=== PATIENT | female | born 1950 | race Two or more races ===

== ENCOUNTER 2018-03-24 12:50 | Outpatient (CLI) | payer BC, MEDICARE ==
[2018-05-16] MEDS ORDERED: AMLO5TAB7 PO (13:07)
[2018-05-19] MEDS ORDERED: CEPH-569 PO (09:02)
== END 2018-03-24 23:59 | disposition home or self-care (01) ==
LOC: WOU 12:50
PROVIDERS: ATTEND Podiatrist Foot & Ankle Surgery
DX: E11.621 Type 2 diabetes mellitus with foot ulcer (principal); L97.422 Non-pressure chronic ulcer of left heel and midfoot with fat layer exposed; L97.412 Non-pressure chronic ulcer of right heel and midfoot with fat layer exposed; M06.9 Rheumatoid arthritis, unspecified; E11.610 Type 2 diabetes mellitus with diabetic neuropathic arthropathy; Z79.82 Long term (current) use of aspirin; Z79.4 Long term (current) use of insulin
CPT/HCPCS: 11043; 87070-TC; 87075-TC; 87186-TC; A6209; A6402; A6407

== ENCOUNTER 2018-03-31 10:58 | Outpatient (CLI) | payer BC, MEDICARE ==
[2018-05-16] MEDS ORDERED: AMLO5TAB7 PO (13:07)
[2018-05-19] MEDS ORDERED: CEPH-569 PO (09:02)
== END 2018-03-31 23:59 | disposition home or self-care (01) ==
LOC: WOU 10:58
PROVIDERS: ATTEND Podiatrist Foot & Ankle Surgery
DX: E11.621 Type 2 diabetes mellitus with foot ulcer (principal); L97.422 Non-pressure chronic ulcer of left heel and midfoot with fat layer exposed; L97.412 Non-pressure chronic ulcer of right heel and midfoot with fat layer exposed; E11.42 Type 2 diabetes mellitus with diabetic polyneuropathy; L03.115 Cellulitis of right lower limb; B95.7 Other staphylococcus as the cause of diseases classified elsewhere; M06.9 Rheumatoid arthritis, unspecified; E11.610 Type 2 diabetes mellitus with diabetic neuropathic arthropathy; Z79.4 Long term (current) use of insulin; Z79.82 Long term (current) use of aspirin; Z79.899 Other long term (current) drug therapy
CPT/HCPCS: 11043; 11042; A6402; A6407

== ENCOUNTER 2018-04-11 10:30 | Outpatient (CLI) | payer BC, MEDICARE ==
[2018-05-16] MEDS ORDERED: AMLO5TAB7 PO (13:07)
[2018-05-19] MEDS ORDERED: CEPH-569 PO (09:02)
== END 2018-04-11 23:59 | disposition home or self-care (01) ==
LOC: WOU 10:30
PROVIDERS: ATTEND Podiatrist Foot & Ankle Surgery
DX: E11.621 Type 2 diabetes mellitus with foot ulcer (principal); L97.428 Non-pressure chronic ulcer of left heel and midfoot with other specified severity; L97.415 Non-pressure chronic ulcer of right heel and midfoot with muscle involvement without evidence of necrosis; L97.522 Non-pressure chronic ulcer of other part of left foot with fat layer exposed; E11.52 Type 2 diabetes mellitus with diabetic peripheral angiopathy with gangrene; M06.9 Rheumatoid arthritis, unspecified; E11.65 Type 2 diabetes mellitus with hyperglycemia; M21.072 Valgus deformity, not elsewhere classified, left ankle; M21.071 Valgus deformity, not elsewhere classified, right ankle; Z79.82 Long term (current) use of aspirin; Z79.4 Long term (current) use of insulin; Z79.899 Other long term (current) drug therapy; E11.610 Type 2 diabetes mellitus with diabetic neuropathic arthropathy; R19.4 Change in bowel habit; E11.69 Type 2 diabetes mellitus with other specified complication; M86.171 Other acute osteomyelitis, right ankle and foot
CPT/HCPCS: 11043; 11042; 87070; A6402; A6407; Z7610; 87186-TC

== ENCOUNTER 2018-04-12 11:50 | Outpatient (CLI) | payer BC, MEDICARE | END 2018-04-12 23:59 | disposition home or self-care (01) | LOC: WOU 11:50 | PROVIDERS: ATTEND Specialist | DX: Z01.818 Encounter for other preprocedural examination (principal); E11.52 Type 2 diabetes mellitus with diabetic peripheral angiopathy with gangrene; I96 Gangrene, not elsewhere classified; M06.9 Rheumatoid arthritis, unspecified; E11.69 Type 2 diabetes mellitus with other specified complication; M86.371 Chronic multifocal osteomyelitis, right ankle and foot; E11.621 Type 2 diabetes mellitus with foot ulcer; L97.428 Non-pressure chronic ulcer of left heel and midfoot with other specified severity; L97.415 Non-pressure chronic ulcer of right heel and midfoot with muscle involvement without evidence of necrosis; L97.522 Non-pressure chronic ulcer of other part of left foot with fat layer exposed; E11.610 Type 2 diabetes mellitus with diabetic neuropathic arthropathy; E11.42 Type 2 diabetes mellitus with diabetic polyneuropathy; L40.59 Other psoriatic arthropathy; Z79.899 Other long term (current) drug therapy; Z79.4 Long term (current) use of insulin; E89.0 Postprocedural hypothyroidism | CPT/HCPCS: 71045-TC; A6402; A6407; G0463 ==

== ENCOUNTER 2018-04-18 10:55 | Outpatient (CLI) | payer BC, MEDICARE | END 2018-04-18 23:59 | disposition home or self-care (01) | LOC: WOU 10:55 | PROVIDERS: ATTEND Podiatrist Foot & Ankle Surgery | DX: E11.621 Type 2 diabetes mellitus with foot ulcer (principal); L97.415 Non-pressure chronic ulcer of right heel and midfoot with muscle involvement without evidence of necrosis; L97.428 Non-pressure chronic ulcer of left heel and midfoot with other specified severity; L97.522 Non-pressure chronic ulcer of other part of left foot with fat layer exposed; E11.52 Type 2 diabetes mellitus with diabetic peripheral angiopathy with gangrene; I96 Gangrene, not elsewhere classified; E11.610 Type 2 diabetes mellitus with diabetic neuropathic arthropathy; M86.671 Other chronic osteomyelitis, right ankle and foot; B95.7 Other staphylococcus as the cause of diseases classified elsewhere; Z79.4 Long term (current) use of insulin; Z79.82 Long term (current) use of aspirin; M06.9 Rheumatoid arthritis, unspecified | CPT/HCPCS: 11042; 11043; A6402 ×2; A6407; Z7610 ==

== ENCOUNTER 2018-04-25 11:11 | Outpatient (CLI) | payer BC, MEDICARE | END 2018-04-25 23:59 | disposition home or self-care (01) | LOC: WOU 11:11 | PROVIDERS: ATTEND Podiatrist Foot & Ankle Surgery | DX: E11.621 Type 2 diabetes mellitus with foot ulcer (principal); L97.415 Non-pressure chronic ulcer of right heel and midfoot with muscle involvement without evidence of necrosis; L97.422 Non-pressure chronic ulcer of left heel and midfoot with fat layer exposed; L97.522 Non-pressure chronic ulcer of other part of left foot with fat layer exposed; L03.115 Cellulitis of right lower limb; B95.7 Other staphylococcus as the cause of diseases classified elsewhere; Z79.4 Long term (current) use of insulin; Z79.82 Long term (current) use of aspirin | CPT/HCPCS: 11042; 11043; A6207; A6402; A6407; Z7610 ==

== ENCOUNTER 2018-05-03 10:54 | Outpatient (CLI) | payer BC, MEDICARE | END 2018-05-03 23:59 | disposition home or self-care (01) | LOC: WOU 10:54 | PROVIDERS: ATTEND Podiatrist Foot & Ankle Surgery | DX: E11.621 Type 2 diabetes mellitus with foot ulcer (principal); L97.422 Non-pressure chronic ulcer of left heel and midfoot with fat layer exposed; L97.415 Non-pressure chronic ulcer of right heel and midfoot with muscle involvement without evidence of necrosis; L97.522 Non-pressure chronic ulcer of other part of left foot with fat layer exposed; M06.9 Rheumatoid arthritis, unspecified; E11.610 Type 2 diabetes mellitus with diabetic neuropathic arthropathy; E11.52 Type 2 diabetes mellitus with diabetic peripheral angiopathy with gangrene; I96 Gangrene, not elsewhere classified; B95.8 Unspecified staphylococcus as the cause of diseases classified elsewhere; E11.69 Type 2 diabetes mellitus with other specified complication; M86.8X7 Other osteomyelitis, ankle and foot; Z79.4 Long term (current) use of insulin; Z79.82 Long term (current) use of aspirin | CPT/HCPCS: 11042; 11043; Z7610 ==

== ENCOUNTER 2018-05-16 11:01 | Outpatient (CLI) | payer BC, MEDICARE ==
[2018-05-16] MEDS ORDERED: LOSA1TAB42 PO (13:07)
[2018-05-16] MEDS ORDERED: LEVO50TA8 PO (13:07)
[2018-05-16] MEDS ORDERED: METH25VI11 SQ (13:07)
[2018-05-16] MEDS ORDERED: CHOL200026 PO (13:07)
[2018-05-16] MEDS ORDERED: ASPI-1169 PO (13:07)
[2018-05-16] MEDS ORDERED: AMLO5TAB2 PO (13:07)
[2018-05-19] MEDS ORDERED: CEPH-569 PO (09:02)
== END 2018-05-16 23:59 | disposition home or self-care (01) ==
LOC: WOU 11:01
PROVIDERS: ATTEND Podiatrist Foot & Ankle Surgery
DX: E11.621 Type 2 diabetes mellitus with foot ulcer (principal); L97.415 Non-pressure chronic ulcer of right heel and midfoot with muscle involvement without evidence of necrosis; L97.422 Non-pressure chronic ulcer of left heel and midfoot with fat layer exposed; L97.522 Non-pressure chronic ulcer of other part of left foot with fat layer exposed; E11.610 Type 2 diabetes mellitus with diabetic neuropathic arthropathy; E11.42 Type 2 diabetes mellitus with diabetic polyneuropathy; E11.69 Type 2 diabetes mellitus with other specified complication; M86.371 Chronic multifocal osteomyelitis, right ankle and foot; M06.9 Rheumatoid arthritis, unspecified; L03.116 Cellulitis of left lower limb; L03.115 Cellulitis of right lower limb; L02.91 Cutaneous abscess, unspecified; B95.7 Other staphylococcus as the cause of diseases classified elsewhere; Z79.82 Long term (current) use of aspirin; Z79.4 Long term (current) use of insulin
CPT/HCPCS: 11043; A6402; A6407; Z7610

== ENCOUNTER 2018-05-16 12:12 | Inpatient (IN) | payer BC, MEDICARE ==
[~2018-05-16] VITALS: Ht 165.1 cm; Wt 68.0 kg
--- NOTE | 2018-05-16 12:18 | NUR ---
PT WHEELED TO ER BED 2. WAS SENT BY DR SOMMERS FOR PRE OPT EVAL. PT PRESENTS W/ BILAT DIABETIC FOOT SORES. DENIES ANY PAIN AT THIS TIME. VSS. AWAITING MD EGAN.
--- NOTE | 2018-05-16 12:20 | NUR ---
DR BERGER AT BEDSIDE FOR EVAL.
--- NOTE | 2018-05-16 12:24 | NUR ---
CALLED DR SOMMERS
--- NOTE | 2018-05-16 12:39 | NUR ---
PHARMACY CALLED FOR IV ANTIBIOTICS
[2018-05-16 12:45] LABS: CALCIUM, SERUM 10.3 mg/dL (8.5-10.1); CARBON DIOXIDE 26 mmol/L (21-32); CHLORIDE 103 mmol/L (98-107); CREATININE 1.8 mg/dL (0.6-1.3); GLUCOSE 344 mg/dL (74-106); POTASSIUM 5.4 mmol/L (3.5-5.1); SODIUM SERUM 134 mmol/L (136-145); UREA NITROGEN, BLOOD 37 mg/dL (7-18)
[2018-05-16 12:51] LABS: BASOPHILS # (AUTO) 0.1 /CMM (0.0-0.2); BASOPHILS % (AUTO) 0.9 % (0.0-2.0); EOSINOPHILS % (AUTO) 2.4 % (0.0-6.0); HEMATOCRIT 34 % (33-45); HEMOGLOBIN 11.3 g/dL (11.5-14.8); LYMPHOCYTES # (AUTO) 2.2 /CMM (0.8-4.8); LYMPHOCYTES % (AUTO) 26.3 % (20.0-44.0); MEAN CORPUSCULAR HEMOGLOBIN 33 PG (26.0-33.0); MEAN CORPUSCULAR HGB CONC 33 g/dl (31.0-36.0); MEAN CORPUSCULAR VOLUME 100 fL (82-100); MONOCYTES # (AUTO) 0.8 /CMM (0.1-1.30); MONOCYTES % (AUTO) 9.9 % (2.0-12.0); NEUTROPHILS # (AUTO) 5.1 /CMM (1.8-8.9); NEUTROPHILS % (AUTO) 60.5 % (43.0-81.0); PLATELET COUNT (AUTO) 225 /CMM (150-450); RDW COEFFICIENT OF VARIATION 15.6 (11.5-15.0); WHITE BLOOD COUNT (AUTO) 8.4 K/uL (4.3-11.0)
[2018-05-16 12:53] LABS: ALANINE AMINOTRANSFERASE 25 U/L (12-78); ALBUMIN 3.7 g/dL (3.4-5.0); ALKALINE PHOSPHATASE 77 U/L (46-116); ASPARTATE AMINOTRANSFERASE 21 U/L (15-37); BILIRUBIN,DIRECT 0.1 mg/dL (0.0-0.2); BILIRUBIN,TOTAL 0.3 mg/dL (0.2-1.0); TOTAL PROTEIN, SERUM 7.3 g/dL (6.4-8.2); TROPONIN I < 0.017 ng/mL (0.00-0.056)
[2018-05-16 13:00] LABS: INR 0.98 (0.85-1.15)
[2018-05-16] MEDS ORDERED: MAG HYDROX/AL HYDROX/SIMETH 30 ML UDC PO PRN (13:00)
[2018-05-16] MEDS ORDERED: INSULIN REGULAR, HUMAN 100 UNIT/ML 3 ML VIAL SQ PRN (13:00)
[2018-05-16] MEDS ORDERED: MAGNESIUM HYDROXIDE 30 ML UDC PO PRN (13:00)
[2018-05-16] MEDS ORDERED: VANCOMYCIN 0.75 GM in IV NS 0.9% 250 ML IV SCH ×2 (13:00→14:00)
[2018-05-16] MEDS ORDERED: Z GUARD REMEDY 2 OZ OINT TP PRN (13:00)
[2018-05-16] MEDS: BLOOD SUGAR DIAGNOSTIC 1 EACH STRIP IN SCH ×3 (13:00→21:39)
[2018-05-16] MEDS ORDERED: ZOLPIDEM TARTRATE 5 MG TABLET PO PRN (13:00)
[2018-05-16] MEDS ORDERED: VANCOMYCIN 1 GM in IV D5W 250 ML IV ONE (13:00)
[2018-05-16] MEDS ORDERED: GENTAMICIN 80 MG in IV D5W 50 ML IV ONE (13:00)
[2018-05-16] MEDS ORDERED: DEXTROSE 50%-WATER 50 ML DISP.SYRIN IV PRN (13:00)
[2018-05-16] MEDS ORDERED: INSULIN GLARGINE, 100 UNIT/ML CARTRIDGE SQ ONE (13:00)
[2018-05-16] MEDS ORDERED: ONDANSETRON HCL/PF 4 MG/2 ML VIAL IVP PRN (13:00)
[2018-05-16] MEDS ORDERED: ACETAMINOPHEN 325 MG TABLET PO PRN (13:00)
[2018-05-16] MEDS ORDERED: ENOXAPARIN SODIUM 40 MG/0.4 ML DISP.SYRIN SQ SCH (13:00)
[2018-05-16] MEDS ORDERED: AMLO5TAB2 PO (13:07)
[2018-05-16] MEDS ORDERED: ASPI-1169 PO (13:07)
[2018-05-16] MEDS ORDERED: LEVO50TA8 PO (13:07)
[2018-05-16] MEDS ORDERED: CHOL200026 PO (13:07)
[2018-05-16] MEDS ORDERED: LOSA1TAB42 PO (13:07)
[2018-05-16] MEDS ORDERED: METH25VI11 SQ (13:07)
--- NOTE | 2018-05-16 13:33 | NUR ---
REPORT GIVEN TO MIKE MCQUEEN
[2018-05-16] MEDS ORDERED: FEE PK DOSING 1 MIN EA MC ONE (13:34)
--- NOTE | 2018-05-16 13:39 | NUR ---
TRANSFERRED TO FLOOR IN STABLE CONDITION
[2018-05-16] MEDS: IV NS 0.9% 1,000 ML IV PRN (16:28)
--- NOTE | 2018-05-16 18:00 | NUR ---
DR. SOMMERS IN AND TOLD PT. UNABLE TO PLACE ON SURG,. SCHEDULE TOMORROW.PT. HAS EXTERNAL INSULIN PUMP AND MANAGES IT.RN TEXTED INFO TO DR. HEREDIA.NO INSULIN GIVEN BY RN. PT. ADMINISTERED INSULIN PER BGL AND DIETARY INTAKE. SPOUSE BROUGHT IN 3 DAY REFILL FOR PUMP.
[2018-05-16] MEDS: PIPERACILLIN /TAZOBACTAM 2.25 G in IV NS 0.9% 50 ML IV SCH (18:04)
--- NOTE | 2018-05-16 19:25 | NUR ---
RN INITIAL NOTES: Received patient on bed, alert, oriented x 4. Breathing even and unlabored. No complaints of pain or discomfort as of this time. IVF hanging on IV pole at bedside but not running. As per AM RN, patient refused it. Asked the patient if she is ready to have it, patient still refused. Call beavers within reach. Bed in low locked position. Patient stable as endorsed by the morning shift RN. Will monitor accordingly.
[2018-05-16 20:00] VITALS: BP 167/77
--- NOTE | 2018-05-16 21:15 | NUR ---
MIKE NOTES: Blood sugar checked, 463. Informed JANETTE Houser. Ordered to use the sliding scale and check BSL in an hour Addendum: 05/16/18 at 2300 by JAY BANDA RN Additional notes: Patient also rechecked blood sugar with her own glucometer, result is the same, 463. Orders obtain from JANETTE Houser
--- NOTE | 2018-05-16 22:36 | NUR ---
RN NOTES: Rechecked blood sugar, 457. Dr. Carranza made aware. She is at bedside talking to the patient as of the moment.
--- NOTE | 2018-05-16 22:54 | NUR ---
RN NOTES: BSL rechecked, 457. To check again at midnight. If still higher than 400, will give insulin as per sliding scale.
[2018-05-16] MEDS ORDERED: ALPRAZOLAM 0.25 MG TABLET PO PRN (23:00)
[2018-05-16] MEDS ORDERED: MORPHINE SULFATE INJ 2 MG/ML DISP.SYRIN IV PRN (23:00)
[2018-05-17] MEDS: PIPERACILLIN /TAZOBACTAM 2.25 G in IV NS 0.9% 50 ML IV SCH ×5 (00:08→23:55)
[2018-05-17] MEDS: BLOOD SUGAR DIAGNOSTIC 1 EACH STRIP IN SCH ×6 (00:20→20:59)
--- NOTE | 2018-05-17 02:10 | NUR ---
MIKE NOTES: JANETTE Zamarripa updated on blood sugar levels and orders given by Dr. Carranza
--- NOTE | 2018-05-17 06:58 | NUR ---
WOUND CARE CONSULT WOUND CARE RECEIVED CONSULT FOR ULCERS ON BOTH FEET. WOUND CARE WILL DEFER CONSULT AND TREATMENT PLANS TO DR TOOTIE GILBERT AT THIS TIME. PATIENT WITH TANYA AT 19. WILL SEE PRN.
[2018-05-17 07:02] LABS: BASOPHILS % (AUTO) 0.5 % (0.0-2.0); EOSINOPHILS % (AUTO) 2.8 % (0.0-6.0); HEMATOCRIT 30 % (33-45); LYMPHOCYTES # (AUTO) 2.4 /CMM (0.8-4.8); LYMPHOCYTES % (AUTO) 29.8 % (20.0-44.0); MEAN CORPUSCULAR HEMOGLOBIN 34 PG (26.0-33.0); MEAN CORPUSCULAR HGB CONC 34 g/dl (31.0-36.0); MEAN CORPUSCULAR VOLUME 100 fL (82-100); MONOCYTES # (AUTO) 0.9 /CMM (0.1-1.30); MONOCYTES % (AUTO) 11.1 % (2.0-12.0); NEUTROPHILS # (AUTO) 4.5 /CMM (1.8-8.9); NEUTROPHILS % (AUTO) 55.8 % (43.0-81.0); PLATELET COUNT (AUTO) 197 /CMM (150-450); RDW COEFFICIENT OF VARIATION 16.3 (11.5-15.0); RED BLOOD CELL COUNT(AUTO) 2.95 MIL/uL (4.0-5.2); WHITE BLOOD COUNT (AUTO) 8.1 K/uL (4.3-11.0)
--- NOTE | 2018-05-17 07:02 | NUR ---
RN CLOSING NOTES: Patient in bed, alert, oriented x 4. Patient remains stable. No complaints of pain or discomfort as of this time. Safety precautions in place. Able to make needs known. All needs attended to. All due medications given as ordered. Will endorse maikel to am shift RN
[2018-05-17 07:22] LABS: CALCIUM, SERUM 8.7 mg/dL (8.5-10.1); CREATININE 1.5 mg/dL (0.6-1.3); MAGNESIUM 1.7 mg/dL (1.8-2.4); PHOSPHORUS 4.8 mg/dL (2.5-4.9); POTASSIUM 4.1 mmol/L (3.5-5.1)
[2018-05-17] MEDS: LEVOTHYROXINE SODIUM 50 MCG TABLET PO SCH (07:55)
[2018-05-17 08:00] VITALS: BP 152/58
[2018-05-17] MEDS ORDERED: LOSARTAN POTASSIUM 50 MG TABLET PO SCH ×2 (09:00→21:00)
[2018-05-17] MEDS ORDERED: DAKINS QUARTER STRENGTH (0.125%) 480 ML BOTTLE TOP SCH (09:00)
[2018-05-17] MEDS ORDERED: AMLODIPINE BESYLATE 5 MG TABLET PO SCH (09:00)
[2018-05-17] MEDS: CHOLECALCIFEROL 1,000 UNIT TABLET (VIT D3) PO SCH (09:00)
[2018-05-17] MEDS: ENOXAPARIN SODIUM 30 MG/0.3 ML DISP.SYRIN SQ SCH (09:00)
[2018-05-17] MEDS: ASPIRIN 81 MG TAB.CHEW PO SCH (09:00)
[2018-05-17] MEDS: DAKINS QUARTER STRENGTH (0.125%) 480 ML BOTTLE TOP SCH (09:22)
--- NOTE | 2018-05-17 10:00 | NUR ---
dr. bernabe in orders given.
[2018-05-17] MEDS: Magnesium 1GM/D5W 100ML PREMIX 100 ML IV SCH ×4 (10:50→18:04)
--- NOTE | 2018-05-17 12:30 | NUR ---
mg. replacement done.
--- NOTE | 2018-05-17 12:30 | NUR ---
iv leaking and uncomfortable,removed and restarted lt. forearm. with #22 angio.
[2018-05-17] MEDS ORDERED: VANCOMYCIN 1 GM in IV NS 0.9% 250 ML IV SCH (13:00)
[2018-05-17] MEDS ORDERED: VANCOMYCIN 1 GM in IV D5W 250 ML IV SCH (14:00)
[2018-05-17] MEDS ORDERED: VANCOMYCIN 0.75 GM in IV NS 0.9% 250 ML IV SCH (14:00)
--- NOTE | 2018-05-17 14:30 | NUR ---
bgl stable a Addendum: 05/17/18 at 2044 by RICHAR LUGO RN above note incomplete.
--- NOTE | 2018-05-17 15:00 | NUR ---
bgl stable all day.
--- NOTE | 2018-05-17 15:45 | NUR ---
ua sent as per dr. horn orders.
[2018-05-17 16:00] VITALS: BP 160/82
--- NOTE | 2018-05-17 18:00 | NUR ---
dr. bowling's asc. here and spoke to pt. regarding surg. and did wd. care to feet.
--- NOTE | 2018-05-17 19:05 | NUR ---
RN INITIAL NOTES: Received patient sitting up on bed, family at bedside. Alert, oriented x 4. No complaints of pain or discomfort as of this time. IV site intact and patent. Call beavers within reach. Bed in low locked position. Patient stable as endorsed by the AM shift RN. Will continue to monitor accordingly
[2018-05-17 19:21] LABS: APPEARANCE,URINE CLEAR (CLEAR); BILIRUBIN,URINE NEGATIVE (NEGATIVE); BLOOD, URINE 2+ Ery/uL (NEGATIVE); COLOR,URINE YELLOW (YELLOW); KETONES,URINE NEGATIVE (NEGATIVE); LEUKOCYTE ESTERASE ,URINE 1+ (NEGATIVE); NITRITE, URINE NEGATIVE (NEGATIVE); PROTEIN,URINE 2+ mg/dl (NEGATIVE); UGLUCOSE NEGATIVE (NEGATIVE); UROBILINOGEN,URINE 0.2 EU/dL (0.2)
[2018-05-17 19:38] LABS: BACTERIA,URINE Moderate /HPF (None Seen); SQUAMOUS EPITHELIAL CELL,UR Few /HPF (None Seen); URINE TOTAL PROTEIN 74.2 mg/dL (0-11.9); WBC,URINE 21-50 /HPF (0-3)
[2018-05-17 20:00] VITALS: BP 155/63
[2018-05-17] MEDS: LOSARTAN POTASSIUM 50 MG TABLET PO SCH (20:56)
[2018-05-17] MEDS: AMLODIPINE BESYLATE 5 MG TABLET PO SCH (20:57)
--- NOTE | 2018-05-17 21:00 | NUR ---
RN NOTES: Blood sugar checked, 212. No insulin given. Patient has own pump that gives her insulin
[2018-05-18] MEDS: BLOOD SUGAR DIAGNOSTIC 1 EACH STRIP IN SCH ×6 (00:30→21:38)
[2018-05-18] MEDS: PIPERACILLIN /TAZOBACTAM 2.25 G in IV NS 0.9% 50 ML IV SCH ×3 (05:27→18:31)
--- NOTE | 2018-05-18 07:25 | NUR ---
RN INITIAL NOTES: PATIENT RESTING IN BED. NONLABORED BREATHING NOTED ON ROOM AIR. DENYING PAIN AT THE MOMENT. IV SITE ON LEFT FOREARM PATENT AND INTACT. BED IN LOWEST LOCKED POSITION. CALL LIGHT WITHIN REACH. WILL CONTINUE TO MONITOR
[2018-05-18] MEDS: LEVOTHYROXINE SODIUM 50 MCG TABLET PO SCH (07:30)
--- NOTE | 2018-05-18 07:30 | NUR ---
RN CLOSING NOTES: Patient in bed, still sleeping but easily arousable. Not in any distress. Breathing even and unlabored. No complaints as of this time. Safety precautions in place. All needs attended to. All due medications given as ordered. For debridement today at 14:00. Endorsed to AM shift RN.
--- NOTE | 2018-05-18 07:47 | NUR ---
PATIENT EDUCATED ON NPO ORDER. PATIENT VERBALIZED UNDERSTANDING PATIENT EDUCATED ON BLOOD SUGAR MONITORING WELL NOT USING INSULIN PUMP DUE TO NPO ORDER. VERBALIZED UNDERSTANDING WELL PATIENT REFUSING IV FLUIDS, STATING "IT MAKES ME URINATE A LOT." BENEFITS AND RISKS EXPLAINED AT LENGTH. PATIENT STILL REFUSED
[2018-05-18 08:00] VITALS: BP 125/79
[2018-05-18 08:19] LABS: CALCIUM, SERUM 8.6 mg/dL (8.5-10.1); CREATININE 1.6 mg/dL (0.6-1.3); POTASSIUM 4.2 mmol/L (3.5-5.1)
[2018-05-18] MEDS: ASPIRIN 81 MG TAB.CHEW PO SCH (09:00)
[2018-05-18] MEDS: CHOLECALCIFEROL 1,000 UNIT TABLET (VIT D3) PO SCH (09:00)
[2018-05-18] MEDS: ENOXAPARIN SODIUM 30 MG/0.3 ML DISP.SYRIN SQ SCH (09:00)
[2018-05-18] MEDS: DAKINS QUARTER STRENGTH (0.125%) 480 ML BOTTLE TOP SCH (10:03)
--- NOTE | 2018-05-18 10:05 | NUR ---
RN NOTES: LOVENOX DOSE HELD PER MD FOR SCHEDULED DEBRIDEMENT SURGERY TODAY
--- NOTE | 2018-05-18 10:06 | NUR ---
RN NOTES: MAGNESIUM LAB ORDERED TO CHECK AFTER MAGNESIUM REPLACEMENT PER MD ORDERS
[2018-05-18] MEDS: IV NS 0.9% 1,000 ML IV PRN (10:08)
[2018-05-18 12:14] VITALS: BP 138/58
--- NOTE | 2018-05-18 12:28 | NUR ---
TYPE AND SCREEN ORDERED PER MD ORDERS, SURGERY PROTOCOL
--- NOTE | 2018-05-18 12:31 | NUR ---
[place] PLACED WITH PRIOR TO SURGERY
[2018-05-18] MEDS ORDERED: LIDOCAINE 1%-EPI 1:100,000 20 ML VIAL ONE (13:34)
[2018-05-18] MEDS ORDERED: BUPIVACAINE MPF 0.75% 30 ML VIAL ONE (13:34)
[2018-05-18] MEDS ORDERED: LIDOCAINE HCL/PF 1% 30 ML SDV ONE (13:34)
[2018-05-18] MEDS ORDERED: MINERAL OIL 10 ML VIAL MC ONE (13:35)
[2018-05-18 15:55] VITALS: BP 148/77
[2018-05-18] MEDS ORDERED: VANCOMYCIN 1 GM in IV NS 0.9% 250 ML IV SCH (16:00)
--- NOTE | 2018-05-18 16:00 | NUR ---
PATIENT RETURNED FROM SURGERY. NONLABORED BREATHING NOTED ON ROOM AIR. DENYING PAIN. IV ON LEFT FOREARM PATENT AND INTACT. DRESSINGS ON BILATERAL FEET INTACT WITH NO BLEEDING NOTED PER DR VAL Penn DPM, KEEP DRESSING CLEAN, DRY, AND INTACT RESUME IV ANTIBIOTICS RESUME PREVIOUS DIET PATIENT TO STAY BED REST FOR NOW PROVIDE BEDSIDE COMMODE ORDER IN CHART
[2018-05-18 16:30] VITALS: BP 144/80
--- NOTE | 2018-05-18 18:57 | NUR ---
RN CLOSING NOTES: PATIENT RESTING IN BED. NONLABORED BREATHING NOTED ON ROOM AIR. DENYING PAIN AT THE MOMENT. IV SITE ON LEFT FOREARM NOTED TO BE INFILTRATED. ICE PACKS APPLIED AND LINE REMOVED. NEW 22 GAUGE IV LINE INSERTED ON RIGHT FOREARM. BED IN LOWEST LOCKED POSITION. CALL LIGHT WITHIN REACH. FALL PRECAUTIONS IMPLEMENTED
--- NOTE | 2018-05-18 19:15 | NUR ---
RN OPENING NOTES RECEIVED PATIENT SITTING UP IN BED, ALERT AND ORIENTED X 4, COMFORTABLE, NO SOB, IN NO ACUTE DISTRESS AT THIS TIME. PT WITH NO C/O PAIN. CONTINUES TO RECEIVE IVF VIA RFA IVP LINE, INFUSING WELL. ALL PATIENT'S NEEDS ATTENDED TO AT THIS TIME. BOTH FEET OFFLOADED. CALL LIGHT PLACED WITHIN EASY REACH. PLACED BED IN LOW POSITION AND LOCKED IN PLACE. WILL CONTINUE TO MONITOR.
[2018-05-18 20:00] VITALS: BP 161/67
[2018-05-18] MEDS: AMLODIPINE BESYLATE 5 MG TABLET PO SCH (20:41)
[2018-05-18] MEDS: LOSARTAN POTASSIUM 50 MG TABLET PO SCH (20:42)
--- NOTE | 2018-05-18 21:30 | NUR ---
RN NOTE BLOOD SUGAR LEVEL CHECK PERFORMED VIA GLUCOMETER AND NOTED PT'S BS: 410 ON RIGHT INDEX AND 424 ON LEFT INDEX FINGER. INFORMED PATIENT AND PER PT, INSULIN WAS ALREADY ADMINISTERED VIA HER OWN INSULIN PUMP. PT VERBALIZED THAT SHE DOESN'T WANT ADDITIONAL INSULIN TO BE ADMINISTERED BY PRIMARY NURSE. CHARGE NURSE AWARE. WILL CONTINUE TO MONITOR PT.
[2018-05-18] MEDS: HYDROCODONE/APAP 5/325MG 1 EACH TABLET PO PRN (21:39)
[2018-05-19] MEDS: PIPERACILLIN /TAZOBACTAM 2.25 G in IV NS 0.9% 50 ML IV SCH ×3 (00:17→12:00)
[2018-05-19] MEDS: BLOOD SUGAR DIAGNOSTIC 1 EACH STRIP IN SCH ×4 (01:20→12:23)
[2018-05-19] MEDS: HYDROCODONE/APAP 5/325MG 1 EACH TABLET PO PRN (04:17)
--- NOTE | 2018-05-19 05:45 | NUR ---
RN NOTES ROCHELLE JOSEPH, BLOOD SUGAR: 381, PT ADMINISTERED 5.6 UNITS INSULIN VIA INSULIN PUMP. PER PT, HER BLOOD SUGAR IS USUALLY LOW, AROUND 70s AT THIS TIME WHEN SHE IS AT HOME.
--- NOTE | 2018-05-19 07:03 | NUR ---
RN CLOSING NOTES PATIENT IN BED, AWAKE, IVF INFUSING ORDERED. ALL PATIENT'S NEEDS ATTENDED TO THROUGHOUT THE SHIFT, DENIES PAIN AT THIS TIME, NO SOB, IN NO ACUTE DISTRESS. PLACED CALL LIGHT WITHIN EASY REACH, BED IN LOW POSITION. DRESSINGS KEPT CLEAN AND IN PLACE. PT SEEN BY JANETTE NEAL, CLERICAL AIDE TEACHER, WITH NO NEW ORDERS. WILL ENDORSE TO AM SHIFT NURSE FOR CONTINUITY OF CARE.
--- NOTE | 2018-05-19 07:40 | NUR ---
RN NOTES PATIENT IN BED, A/OX4, DENIES DISCOMFORT AT THIS TIME, DRESSING ON BLE C/D/I, NEEDS ATTENDED AND MET, CALL LIGHT WITHIN REACH, WILL CONTINUE TO MONITOR.
[2018-05-19] MEDS: ENOXAPARIN SODIUM 30 MG/0.3 ML DISP.SYRIN SQ SCH (08:18)
[2018-05-19] MEDS: LEVOTHYROXINE SODIUM 50 MCG TABLET PO SCH (08:18)
[2018-05-19] MEDS: CHOLECALCIFEROL 1,000 UNIT TABLET (VIT D3) PO SCH (08:18)
[2018-05-19] MEDS: ASPIRIN 81 MG TAB.CHEW PO SCH (08:18)
[2018-05-19] MEDS: DAKINS QUARTER STRENGTH (0.125%) 480 ML BOTTLE TOP SCH (08:22)
--- NOTE | 2018-05-19 08:27 | NUR ---
RN NOTES BS RESULT SHOWS 294, PATIENT CHECKED HER OWN BLOOD SUGAR WITH RESULT OF 296 AND GAVE HERSELF HER OWN INSULIN 5.9U, VIA HER INSULIN PUMP LOCATED ON HER ABDOMEN AREA. PATIENT REFUSED LOVENOX, EXPLAINED RISKS AND BENEFITS STILL REFUSED. OFFERED WOUND TREATMENT HOWEVER PATIENT STATED SHE'S WAITING FOR DR. WAYNE.
[2018-05-19 08:34] VITALS: BP 132/57
[2018-05-19 08:44] LABS: CALCIUM, SERUM 7.8 mg/dL (8.5-10.1); CREATININE 1.7 mg/dL (0.6-1.3); PHOSPHORUS 2.6 mg/dL (2.5-4.9)
[2018-05-19] MEDS ORDERED: CEPH-569 PO (09:02)
--- NOTE | 2018-05-19 11:14 | NUR ---
RN NOTES PATIENT HAS AN ORDER FOR DISCHARGE, SPOKE WITH DR. SOMMERS, PER MD, LEAVE THE DRESSING INTACT, OK FOR DC AND TO FOLLOW UP WITH HIM IN ONE WEEK. SKIN ASSESSMENT COMPLETED BUT UNABLE TO TAKE PHOTOS OF BLE FOR DISCHARGE DUE TO DR. SOMMERS'S ORDER TO LEAVE THE DRESSING ON. PATIENT MADE AWARE AND VERBALIZED UNDERSTANDING.
--- NOTE | 2018-05-19 12:28 | NUR ---
RN NOTES BS SHOWS 238, WILL HOLD INSULIN, BECAUSE PATIENT STATED SHE'S NOT GOING TO EAT, SHE WANTS TO GO HOME RIGHT AWAY, AND SHE GAVE HERSELF HER OWN INSULIN.
--- NOTE | 2018-05-19 12:44 | NUR ---
NURSE RECRUITER NOTE PATIENT A/OX4, BREATHING EVEN AND UNLABORED, AT BEDSIDE, RECEIVED DISCHARGE INSTRUCTIONS AND BOTH VERBALIZED UNDERSTANDING, PIV REMOVED AND COVERED WITH GAUZE AND TAPE, BELONGINGS RECONCILED AND COMPLETE. UNABLE TO TAKE PHOTOS, PER DR. SOMMERS ORDER, LEAVE THE DRESSING INTACT. PER PATIENT HER WOUND CARE IS PRIMARILY DONE BY THE , SO NO HOME HEALTH IS NEEDED. HOSPITAL INTERN AWARE. INSTRUCTED PATIENT NOT TO BEAR WEIGHT ON BLE. AND PATIENT BOTH VERBALIZED UNDERSTANDING. PATIENT LEFT THE FACILITY IN A WHEELCHAIR, ACCOMPANIED BY AND BUTTON SAWYER TO PRIVATE CAR. PATIENT IN NO DISTRESS.
== END 2018-05-19 12:35 | disposition home or self-care (01) | DRG 623 ==
LOC: ER 12:14 → MED 13:21
PROVIDERS: ADMIT Internal Medicine; ATTEND Internal Medicine
PROC: 0HBNXZZ Excision of Left Foot Skin, External Approach (ICD-10-PCS; principal; 2018-05-18 14:00)
PROC: 0HRNX74 Replacement of Left Foot Skin with Autologous Tissue Substitute, Partial Thickness, External Approach (ICD-10-PCS; principal; 2018-05-18 14:00)
PROC: 0JBR0ZZ Excision of Left Foot Subcutaneous Tissue and Fascia, Open Approach (ICD-10-PCS; principal; 2018-05-18 14:00)
PROC: 0JXQ0ZC Transfer Right Foot Subcutaneous Tissue and Fascia with Skin, Subcutaneous Tissue and Fascia, Open Approach (ICD-10-PCS; principal; 2018-05-18 14:00)
DX: E11.621 Type 2 diabetes mellitus with foot ulcer (principal); L02.611 Cutaneous abscess of right foot; L03.115 Cellulitis of right lower limb; E11.52 Type 2 diabetes mellitus with diabetic peripheral angiopathy with gangrene; E11.65 Type 2 diabetes mellitus with hyperglycemia; Z79.82 Long term (current) use of aspirin; E11.22 Type 2 diabetes mellitus with diabetic chronic kidney disease; I12.9 Hypertensive chronic kidney disease with stage 1 through stage 4 chronic kidney disease, or unspecified chronic kidney disease; N17.0 Acute kidney failure with tubular necrosis; L97.519 Non-pressure chronic ulcer of other part of right foot with unspecified severity; N18.9 Chronic kidney disease, unspecified; Z79.4 Long term (current) use of insulin; Z90.710 Acquired absence of both cervix and uterus; L97.529 Non-pressure chronic ulcer of other part of left foot with unspecified severity; E11.42 Type 2 diabetes mellitus with diabetic polyneuropathy; E11.622 Type 2 diabetes mellitus with other skin ulcer; E78.5 Hyperlipidemia, unspecified; M06.9 Rheumatoid arthritis, unspecified; I70.0 Atherosclerosis of aorta; R22.41 Localized swelling, mass and lump, right lower limb
CPT/HCPCS: 36415; 71045-TC; 76770-TC; 80048-TC; 80076-TC; 81000-TC; 82570-TC; 82962-TC; 83605-TC; 83735-TC; 84100-TC; 84155-TC; 84300-TC; 84484-TC; 85025-TC; 85730-TC; 86850-TC; 87040-TC; 87070-TC; 87075-TC; 87081-TC; 87086-TC; 88305-TC; 88312-TC; A4216; A4606; A6253; A6402; A6403; J1580; J1650; J1815; J2543; J3370; J3475; J3490; J7030; J7050; J7060; Z7610

== ENCOUNTER 2018-05-23 10:45 | Outpatient (CLI) | payer BC, MEDICARE ==
[~2018-05-23 10:45] MED LIST: AMLO5TAB2 PO; ASPI-1169 PO; CHOL200026 PO; LEVO50TA8 PO; LOSA1TAB42 PO; METH25VI11 SQ
== END 2018-05-23 23:59 | disposition home or self-care (01) ==
LOC: WOU 10:45
PROVIDERS: ATTEND Podiatrist Foot & Ankle Surgery
DX: Z48.817 Encounter for surgical aftercare following surgery on the skin and subcutaneous tissue (principal); T81.89XD Other complications of procedures, not elsewhere classified, subsequent encounter; E11.42 Type 2 diabetes mellitus with diabetic polyneuropathy; M20.42 Other hammer toe(s) (acquired), left foot; M20.41 Other hammer toe(s) (acquired), right foot; M21.40 Flat foot [pes planus] (acquired), unspecified foot; M06.9 Rheumatoid arthritis, unspecified; Z94.5 Skin transplant status; Z79.4 Long term (current) use of insulin; Z79.82 Long term (current) use of aspirin
CPT/HCPCS: 99214; A6402; Z7610 ×2; G0463

== ENCOUNTER 2018-05-30 10:53 | Outpatient (CLI) | payer BC, MEDICARE | END 2018-05-30 23:59 | disposition home or self-care (01) | LOC: WOU 10:53 | PROVIDERS: ATTEND Podiatrist Foot & Ankle Surgery | DX: E11.621 Type 2 diabetes mellitus with foot ulcer (principal); L97.528 Non-pressure chronic ulcer of other part of left foot with other specified severity; T81.89XD Other complications of procedures, not elsewhere classified, subsequent encounter; L03.115 Cellulitis of right lower limb; B96.89 Other specified bacterial agents as the cause of diseases classified elsewhere; E11.42 Type 2 diabetes mellitus with diabetic polyneuropathy; Z79.4 Long term (current) use of insulin; M06.9 Rheumatoid arthritis, unspecified; Z79.82 Long term (current) use of aspirin | CPT/HCPCS: 11042; 87070; A6402 ×2; Z7610; 87186-TC ==

== ENCOUNTER 2018-06-06 11:05 | Outpatient (CLI) | payer BC, MEDICARE | END 2018-06-06 23:59 | disposition home or self-care (01) | LOC: WOU 11:05 | PROVIDERS: ATTEND Podiatrist Foot & Ankle Surgery | DX: E11.621 Type 2 diabetes mellitus with foot ulcer (principal); L97.528 Non-pressure chronic ulcer of other part of left foot with other specified severity; L97.518 Non-pressure chronic ulcer of other part of right foot with other specified severity; T81.89XD Other complications of procedures, not elsewhere classified, subsequent encounter; T81.31XD Disruption of external operation (surgical) wound, not elsewhere classified, subsequent encounter; E11.42 Type 2 diabetes mellitus with diabetic polyneuropathy; M06.9 Rheumatoid arthritis, unspecified; M20.42 Other hammer toe(s) (acquired), left foot; M20.41 Other hammer toe(s) (acquired), right foot; Z79.4 Long term (current) use of insulin; Z79.82 Long term (current) use of aspirin | CPT/HCPCS: 87070; 87075; 87077; 87186; 99215; A6197; A6402; Z7610; A6209; G0463 ==

== ENCOUNTER 2018-06-12 14:22 | Inpatient (IN) | payer BC, MEDICARE ==
[~2018-06-12] VITALS: Ht 165.1 cm; Wt 73.9 kg
--- NOTE | 2018-06-12 14:30 | NUR ---
WOUND DEHISCENCE TO SUTURES ON R FOOT. NAD NOTED, VSS, RESP EVEN AND UNLABORED, PT WAS PUT ON MONITOR, AND HOSPITAL GOWN. AT BS.
--- NOTE | 2018-06-12 15:37 | NUR ---
PAGED DR. SOMMERS
--- NOTE | 2018-06-12 15:47 | NUR ---
CALLED NURSE TOM FOR MED.SURG BED
--- NOTE | 2018-06-12 16:03 | NUR ---
PAGED EPIC FOR PANEL - ON-CALL PITCH WORKER ADA
[2018-06-12 16:27] LABS: BASOPHILS # (AUTO) 0.1 /CMM (0.0-0.2); BASOPHILS % (AUTO) 0.7 % (0.0-2.0); EOSINOPHILS % (AUTO) 2.7 % (0.0-6.0); HEMATOCRIT 37 % (33-45); HEMOGLOBIN 12.2 g/dL (11.5-14.8); LYMPHOCYTES # (AUTO) 3.2 /CMM (0.8-4.8); LYMPHOCYTES % (AUTO) 29.5 % (20.0-44.0); MEAN CORPUSCULAR HEMOGLOBIN 33 PG (26.0-33.0); MEAN CORPUSCULAR HGB CONC 33 g/dl (31.0-36.0); MEAN CORPUSCULAR VOLUME 98 fL (82-100); MONOCYTES # (AUTO) 0.7 /CMM (0.1-1.30); MONOCYTES % (AUTO) 6.6 % (2.0-12.0); NEUTROPHILS # (AUTO) 6.6 /CMM (1.8-8.9); NEUTROPHILS % (AUTO) 60.5 % (43.0-81.0); PLATELET COUNT (AUTO) 254 /CMM (150-450); RDW COEFFICIENT OF VARIATION 15.3 (11.5-15.0); RED BLOOD CELL COUNT(AUTO) 3.73 MIL/uL (4.0-5.2); WHITE BLOOD COUNT (AUTO) 10.9 K/uL (4.3-11.0)
[2018-06-12 16:36] LABS: CALCIUM, SERUM 9.2 mg/dL (8.5-10.1); CREATININE 1.4 mg/dL (0.6-1.3); POTASSIUM 4.3 mmol/L (3.5-5.1)
[2018-06-12 16:41] LABS: ALBUMIN 3.7 g/dL (3.4-5.0); BILIRUBIN,DIRECT 0.1 mg/dL (0.0-0.2); BILIRUBIN,TOTAL 0.2 mg/dL (0.2-1.0); TOTAL PROTEIN, SERUM 7.2 g/dL (6.4-8.2)
[2018-06-12 16:48] LABS: INR 0.94 (0.85-1.15)
--- NOTE | 2018-06-12 17:00 | NUR ---
CALLED NURSE TOM FOR MED.SURG BED
--- NOTE | 2018-06-12 17:12 | NUR ---
PT TO ROOM 315-2 REPORT TO MIKE JACOBO
[2018-06-12 18:10] VITALS: BP 160/83
--- NOTE | 2018-06-12 18:10 | NUR ---
RECEIVED PATIENT FROM ER VIA RD[facility]. PATIENT IS A/OX4, AMBULATORY. CAME HERE FOR RIGHT WOUND DEHISCENCE AND FOR SURGERY TOMORROW WITH DR WAYNE. NO ACUTE DISTRESS, NO SOB. DENIED PAIN OR DISCOMFORT AT THE MOMENT. IV SITE ON LEFT AC INTACT AND PATENT. PATIENT HAS INSULIN PUMP ON RIGHT ABDOMEN. PLACED A KERLIX DRESSING ON RIGHT PLANTAR FOOT. KEPT PATIENT SAFE AND COMFORTABLE. BED IN LOW/LOCKED POSITION, CALL LIGHT IN REACH. NOTIFIED MD FOR ADMITTING ORDERS. WILL ENDORSED TO ROTOFORMER BACKTENDER FOR BEBE.
[2018-06-12] MEDS ORDERED: IV NS 0.9% 1,000 ML IV PRN (19:19)
--- NOTE | 2018-06-12 19:22 | NUR ---
ENDORSED PATIENT IN STABLE CONDITION TO MIKE OSORIO FOR BEBE.
[2018-06-12] MEDS ORDERED: MAGNESIUM HYDROXIDE 30 ML UDC PO PRN (19:30)
[2018-06-12] MEDS ORDERED: ACETAMINOPHEN 325 MG TABLET PO PRN (19:30)
[2018-06-12] MEDS ORDERED: Z GUARD REMEDY 2 OZ OINT TP PRN (19:30)
[2018-06-12] MEDS ORDERED: MAG HYDROX/AL HYDROX/SIMETH 30 ML UDC PO PRN (19:30)
[2018-06-12] MEDS ORDERED: HYDROCODONE/APAP 5/325MG 1 EACH TABLET PO PRN (19:30)
[2018-06-12] MEDS ORDERED: MORPHINE SULFATE INJ 2 MG/ML DISP.SYRIN IV PRN (19:30)
[2018-06-12] MEDS ORDERED: ONDANSETRON HCL/PF 4 MG/2 ML VIAL IVP PRN (19:30)
[2018-06-12] MEDS ORDERED: ZOLPIDEM TARTRATE 5 MG TABLET PO PRN (19:30)
--- NOTE | 2018-06-12 19:30 | NUR ---
MS RN OPENING NOTE Patient was seen sitting upright in bed AAOx4, breathing on RA with no signs of acute distress. IV in the left AC is intact and patent. Dressing on right foot is clean, dry, and intact. Patient is scheduled for surgery tomorrow morning for right foot debridement and wound closure with possible application of skin autograph or allograph. Received phone call from Dr. Jung confirming surgery; verbal orders received and entered electronically for NPO status and non-weight bearing on right foot. Patient has been made aware; consents pending. Bed is low/locked, two side rails up, and call beavers within reach. Patient has no immediate needs at this time. Will continue to monitor.
[2018-06-12 20:00] VITALS: BP 155/63
[2018-06-12] MEDS ORDERED: FEE PK DOSING 1 MIN EA MC ONE (20:24)
[2018-06-12] MEDS ORDERED: VANCOMYCIN 1 GM in IV D5W 250 ML IV SCH (21:00)
--- NOTE | 2018-06-12 22:00 | NUR ---
MS RN NOTE - Possible allergy to Vanco Patient reported itching on her back, neck, and head shortly after IV Vanco was given, however, roughly 3/4 of the bag had infused before patient alerted me. Upon observation, patient had redness along neck, upper back, and shoulders. IV Vanco was stopped and disconnected. Patient did not have difficulty breathing and denied any other symptoms. Patient was monitored. About 15 minutes later, patient stated that the itching went away. On-call physician, Dr. Mundo Gallegos, was informed. 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 Order for 25 mg IV benadryl prn with Vanco received.
[2018-06-12] MEDS: PIPERACILLIN /TAZOBACTAM 3.375 G in IV D5W 50 ML IV SCH (22:45)
[2018-06-13] MEDS ORDERED: diphenhydrAMINE HCL 50 MG/ML VIAL IV PRN
[2018-06-13] MEDS: PIPERACILLIN /TAZOBACTAM 3.375 G in IV D5W 50 ML IV SCH ×2 (04:03→09:51)
--- NOTE | 2018-06-13 04:45 | NUR ---
MS RN NOTE - New IV Patient's IV pump continued to alarm "downstream occlusion" despite flushing IV and repositioning arm and IV tubing multiple times throughout the night. Patient also reported mild pain upon the last IV flush. New IV (20g) was started in the right forearm with positive blood return and easy flush. IV fluids NS at 125 ml/hr were resumed and IV in the left AC was removed.
--- NOTE | 2018-06-13 07:00 | NUR ---
MS RN CLOSING NOTE / Patient left for surgery Patient left the unit for right foot surgery - wound debridement and closure with possible application of skin graft. All consents signed and surgical checklist completed. Vitals signs WNL. Patient remained NPO after midnight. Patient slept intermittently overnight, but had no complications and remains in stable condition. Patient care has been endorsed to day shift nurse.
[2018-06-13] MEDS ORDERED: ANESTHESIA TRAY IN PYXIS 1 EA TRAY MC ONE (07:09)
[2018-06-13] MEDS ORDERED: MINERAL OIL 10 ML VIAL MC ONE (07:09)
[2018-06-13 07:18] LABS: BASOPHILS # (AUTO) 0.1 /CMM (0.0-0.2); BASOPHILS % (AUTO) 0.6 % (0.0-2.0); EOSINOPHILS % (AUTO) 3.3 % (0.0-6.0); HEMATOCRIT 32 % (33-45); HEMOGLOBIN 10.4 g/dL (11.5-14.8); LYMPHOCYTES # (AUTO) 3.2 /CMM (0.8-4.8); LYMPHOCYTES % (AUTO) 33.2 % (20.0-44.0); MEAN CORPUSCULAR HEMOGLOBIN 33 PG (26.0-33.0); MEAN CORPUSCULAR HGB CONC 33 g/dl (31.0-36.0); MEAN CORPUSCULAR VOLUME 101 fL (82-100); MONOCYTES % (AUTO) 10.3 % (2.0-12.0); NEUTROPHILS # (AUTO) 5.1 /CMM (1.8-8.9); NEUTROPHILS % (AUTO) 52.6 % (43.0-81.0); PLATELET COUNT (AUTO) 207 /CMM (150-450); RDW COEFFICIENT OF VARIATION 15.9 (11.5-15.0); RED BLOOD CELL COUNT(AUTO) 3.12 MIL/uL (4.0-5.2); WHITE BLOOD COUNT (AUTO) 9.7 K/uL (4.3-11.0)
[2018-06-13] MEDS ORDERED: LIDOCAINE 0.5% HCL 50 ML VIAL ONE (07:19)
[2018-06-13] MEDS ORDERED: LIDOCAINE 0.5%-EPI 1:200,000 50 ML VIAL ONE (07:19)
[2018-06-13] MEDS: PANTOPRAZOLE 40 MG TABLET.DR PO SCH (07:30)
--- NOTE | 2018-06-13 07:35 | NUR ---
MS RN OPENING NOTES PATIENT IS IN OPERATION ROOM FOR WOUND DEBRIDEMENT AND CLOSURE WITH POSSIBLE SKIN GRAFT BY DR. SOMMERS. PATIENT LEFT THE UNIT AT 0700.
[2018-06-13 07:44] LABS: CALCIUM, SERUM 8.3 mg/dL (8.5-10.1); CREATININE 1.3 mg/dL (0.6-1.3); PHOSPHORUS 3.4 mg/dL (2.5-4.9); POTASSIUM 4.1 mmol/L (3.5-5.1)
--- NOTE | 2018-06-13 08:00 | NUR ---
NON ADMINISTERED PROTONIX. PATIENT IS NPO FOR SURGERY AND IN THE OPERATION ROOM.
--- NOTE | 2018-06-13 08:50 | NUR ---
PATIENT RETURNED FROM OPERATION ROOM FROM WOUND DEBRIDEMENT WITH LEFT THIGH SKIN GRAFT AND WOUND CLOSURE.
[2018-06-13 09:40] VITALS: BP 149/61
[2018-06-13] MEDS ORDERED: IV NS 0.9% 1,000 ML IV PRN (09:45)
[2018-06-13 16:00] VITALS: BP 165/67
--- NOTE | 2018-06-13 17:11 | NUR ---
Patient is alert and pleasant. Lives at home with spouse who is her primary source of support and caregiver. Patient is independent with adl's, he owns a wheelchair for mobility due to B/L LE diabetic foot ulcers s/p debridement and skin grafting with wound dehiscence. She is being followed at the [facility] wound care center. Patient does wound care at home. Current plan is to return home, will provide ride when discharge. Addendum: 06/13/18 at 1712 by KENNY IVERSON RN Amended: Links added.
[2018-06-13] MEDS: PIPERACILLIN /TAZOBACTAM 3.375 G in IV NS 0.9% 50 ML IV SCH (17:18)
--- NOTE | 2018-06-13 18:15 | NUR ---
MS RN CLOSING NOTES PATIENT IS IN STABLE CONDITION. IN NO APPARENT DISTRESS. BEDSIDE RAILS ARE UPX2. BED IS LOCKED AND LOWERED. CALL LIGHT IS WITHIN REACH. IV LINE IS INTACT AND PATENT. ALL NEEDS WERE MET. WILL ENDORSE CARE TO MARINE ENGINEER CPVEC NURSE FOR BEBE.
--- NOTE | 2018-06-13 19:30 | NUR ---
RN NOTES RECEIVED PT AWAKE, ALERT AND ORIENTED X4, ON ROOM AIR AND TOLERATED WELL. PT DENIES PAIN AND DISCOMFORT AT THIS TIME. IV ACCESS ON RIGHT FORE ARM PATENT AND INTACT WITH ONGOING IVF INFUSING WELL. LEFT UPPER THIGH DRESSING CLEAN, DRY AND INTACT. BILATERAL FEET ELEVATED WITH DRESSING CLEAN, DRY, AND INTACT. PLAN OF CARE DISCUSSED WITH THE PT AND VERBALIZED UNDERSTANDING. SAFETY MEASURES AND FALL PRECAUTION OBSERVED WITH CALL LIGHT WITH IN REACH. WILL CONTINUE TO MONITOR PT.
[2018-06-13 20:00] VITALS: BP 150/70
[2018-06-13 22:00] VITALS: BP 150/70
[2018-06-14] MEDS: PIPERACILLIN /TAZOBACTAM 3.375 G in IV NS 0.9% 50 ML IV SCH ×3 (00:02→11:37)
[2018-06-14 06:22] LABS: BASOPHILS % (AUTO) 0.2 % (0.0-2.0); EOSINOPHILS % (AUTO) 0.3 % (0.0-6.0); HEMATOCRIT 30 % (33-45); HEMOGLOBIN 9.8 g/dL (11.5-14.8); LYMPHOCYTES # (AUTO) 2.5 /CMM (0.8-4.8); LYMPHOCYTES % (AUTO) 19.3 % (20.0-44.0); MEAN CORPUSCULAR HEMOGLOBIN 33 PG (26.0-33.0); MEAN CORPUSCULAR HGB CONC 32 g/dl (31.0-36.0); MEAN CORPUSCULAR VOLUME 102 fL (82-100); MONOCYTES # (AUTO) 1.1 /CMM (0.1-1.30); MONOCYTES % (AUTO) 8.2 % (2.0-12.0); NEUTROPHILS # (AUTO) 9.4 /CMM (1.8-8.9); PLATELET COUNT (AUTO) 200 /CMM (150-450); RDW COEFFICIENT OF VARIATION 15.4 (11.5-15.0); RED BLOOD CELL COUNT(AUTO) 2.99 MIL/uL (4.0-5.2)
--- NOTE | 2018-06-14 06:30 | NUR ---
RN NOTES PT STABLE OVERNIGHT, AFEBRILE, NO COMPLAIN OF PAIN WITHIN THE SHIFT. KEPT BILATERAL LOWER LEG ELEVATED. NO SIGNIFICANT CHANGE IN CONDITION NOTED. WILL ENDORSE TO MORNING RN FOR CONTINUITY OF CARE.
[2018-06-14 06:45] LABS: CREATININE 1.5 mg/dL (0.6-1.3); PHOSPHORUS 3.2 mg/dL (2.5-4.9); POTASSIUM 4.3 mmol/L (3.5-5.1)
--- NOTE | 2018-06-14 07:10 | NUR ---
RN NOTES GLUCOSE LEVEL 421MG/DL PER LABORATORY, PT INFORMED BECAUSE SHE'S CHECKING HER BLOOD SUGAR LEVEL EVERY BEFORE MEALS AND SELF ADMINISTER INSULIN VIA INSULIN PUMP. PER PT SHE WILL CHECK HER BLOOD SUGAR BEFORE BREAKFAST AND WILL GIVE HERSELF INSULIN VIA INSULIN PUMP. WILL ENDORSE TO MORNING RN.
[2018-06-14 08:00] VITALS: BP 136/60
[2018-06-14] MEDS ORDERED: LEVOTHYROXINE SODIUM 50 MCG TABLET PO SCH (08:00)
[2018-06-14] MEDS: PANTOPRAZOLE 40 MG TABLET.DR PO SCH (08:43)
[2018-06-14 08:45] VITALS: BP 136/60
[2018-06-14] MEDS ORDERED: ASPIRIN 81 MG TAB.CHEW PO SCH (09:00)
[2018-06-14] MEDS ORDERED: AMLODIPINE BESYLATE 5 MG TABLET PO SCH (09:00)
[2018-06-14] MEDS ORDERED: DOXY150T PO (11:24)
[2018-06-14] MEDS ORDERED: CLINDAMYCIN 300 MG in IV NS 0.9% 50 ML IV SCH (12:00)
== END 2018-06-14 13:00 | disposition home or self-care (01) | DRG 901 ==
LOC: ER 14:24 → MED 17:20
PROVIDERS: ADMIT Student in an Organized Health Care Education/Training Program; ATTEND Student in an Organized Health Care Education/Training Program
PROC: 0HRMX73 Replacement of Right Foot Skin with Autologous Tissue Substitute, Full Thickness, External Approach (ICD-10-PCS; principal; 2018-06-13 07:40)
PROC: 0JBQ0ZZ Excision of Right Foot Subcutaneous Tissue and Fascia, Open Approach (ICD-10-PCS; principal; 2018-06-13 07:40)
DX: T81.32XA Disruption of internal operation (surgical) wound, not elsewhere classified, initial encounter (principal); N17.0 Acute kidney failure with tubular necrosis; D68.59 Other primary thrombophilia; Y83.2 Surgical operation with anastomosis, bypass or graft as the cause of abnormal reaction of the patient, or of later complication, without mention of misadventure at the time of the procedure; Y92.89 Other specified places as the place of occurrence of the external cause; E11.22 Type 2 diabetes mellitus with diabetic chronic kidney disease; E11.621 Type 2 diabetes mellitus with foot ulcer; I12.9 Hypertensive chronic kidney disease with stage 1 through stage 4 chronic kidney disease, or unspecified chronic kidney disease; N18.9 Chronic kidney disease, unspecified; L40.50 Arthropathic psoriasis, unspecified; Z79.82 Long term (current) use of aspirin; Z96.41 Presence of insulin pump (external) (internal); Z79.4 Long term (current) use of insulin; Z90.710 Acquired absence of both cervix and uterus; Z82.49 Family history of ischemic heart disease and other diseases of the circulatory system; Z74.09 Other reduced mobility; E11.42 Type 2 diabetes mellitus with diabetic polyneuropathy; T36.8X5A Adverse effect of other systemic antibiotics, initial encounter; L97.509 Non-pressure chronic ulcer of other part of unspecified foot with unspecified severity; E78.5 Hyperlipidemia, unspecified
CPT/HCPCS: 36415; 71045-TC; 80048-TC; 80061-TC; 80076-TC; 82962-TC; 83735-TC; 84100-TC; 85025-TC; 85730-TC; 87070-TC; 87081-TC; A4216; A4606; A6402; J2543; J3370; J3490; J7030; J7060; Z7610

== ENCOUNTER 2018-06-20 11:17 | Outpatient (CLI) | payer BC, MEDICARE ==
[~2018-06-20 11:17] MED LIST changes: +DOXY150T PO
== END 2018-06-20 23:59 | disposition home or self-care (01) ==
LOC: WOU 11:17
PROVIDERS: ATTEND Podiatrist Foot & Ankle Surgery
DX: Z48.817 Encounter for surgical aftercare following surgery on the skin and subcutaneous tissue (principal); T81.89XD Other complications of procedures, not elsewhere classified, subsequent encounter; E11.42 Type 2 diabetes mellitus with diabetic polyneuropathy; Z79.4 Long term (current) use of insulin; Z79.82 Long term (current) use of aspirin; M06.9 Rheumatoid arthritis, unspecified; M20.42 Other hammer toe(s) (acquired), left foot; M20.41 Other hammer toe(s) (acquired), right foot
CPT/HCPCS: 99213; A6402; Z7610; G0463

== ENCOUNTER 2018-06-27 11:15 | Outpatient (CLI) | payer BC, MEDICARE | END 2018-06-27 23:59 | disposition home or self-care (01) | LOC: WOU 11:15 | PROVIDERS: ATTEND Podiatrist Foot & Ankle Surgery | DX: Z48.817 Encounter for surgical aftercare following surgery on the skin and subcutaneous tissue (principal); L84 Corns and callosities; M06.9 Rheumatoid arthritis, unspecified; M20.42 Other hammer toe(s) (acquired), left foot; M20.41 Other hammer toe(s) (acquired), right foot; T81.31XD Disruption of external operation (surgical) wound, not elsewhere classified, subsequent encounter; E11.42 Type 2 diabetes mellitus with diabetic polyneuropathy; E11.610 Type 2 diabetes mellitus with diabetic neuropathic arthropathy; Z79.82 Long term (current) use of aspirin; Z79.4 Long term (current) use of insulin | CPT/HCPCS: 99215; A6402; Z7610; G0463 ==

== ENCOUNTER 2018-07-04 11:15 | Outpatient (CLI) | payer BC, MEDICARE ==
[~2018-07-04 11:15] MED LIST changes: -AMLO5TAB2 PO; +AMLO5TAB7 PO
== END 2018-07-04 23:59 | disposition home or self-care (01) ==
LOC: WOU 11:15
PROVIDERS: ATTEND Podiatrist Foot & Ankle Surgery
DX: Z48.817 Encounter for surgical aftercare following surgery on the skin and subcutaneous tissue (principal); E11.610 Type 2 diabetes mellitus with diabetic neuropathic arthropathy; E11.42 Type 2 diabetes mellitus with diabetic polyneuropathy; L40.59 Other psoriatic arthropathy; Z86.31 Personal history of diabetic foot ulcer; Z79.4 Long term (current) use of insulin; Z79.82 Long term (current) use of aspirin; Z79.899 Other long term (current) drug therapy; M06.9 Rheumatoid arthritis, unspecified
CPT/HCPCS: 99213; A6402 ×2; Z7610; G0463

== ENCOUNTER 2018-07-11 11:20 | Outpatient (CLI) | payer BC, MEDICARE | END 2018-07-11 23:59 | disposition home or self-care (01) | LOC: WOU 11:20 | PROVIDERS: ATTEND Podiatrist Foot & Ankle Surgery | DX: Z48.817 Encounter for surgical aftercare following surgery on the skin and subcutaneous tissue (principal); E11.610 Type 2 diabetes mellitus with diabetic neuropathic arthropathy; M06.9 Rheumatoid arthritis, unspecified; Z86.31 Personal history of diabetic foot ulcer; Z79.4 Long term (current) use of insulin; Z79.82 Long term (current) use of aspirin; L84 Corns and callosities; M25.375 Other instability, left foot; M25.374 Other instability, right foot | CPT/HCPCS: 99213; A6402; Z7610; G0463 ==

== ENCOUNTER 2018-07-18 11:19 | Outpatient (CLI) | payer BC, MEDICARE | END 2018-07-18 23:59 | disposition home or self-care (01) | LOC: WOU 11:19 | PROVIDERS: ATTEND Podiatrist Foot & Ankle Surgery | DX: L84 Corns and callosities (principal); M79.671 Pain in right foot; M21.962 Unspecified acquired deformity of left lower leg; M21.961 Unspecified acquired deformity of right lower leg | CPT/HCPCS: 99213; A6402; Z7610; G0463 ==

== ENCOUNTER 2018-07-25 11:12 | Outpatient (CLI) | payer BC, MEDICARE | END 2018-07-25 23:59 | disposition home or self-care (01) | LOC: WOU 11:12 | PROVIDERS: ATTEND Podiatrist Foot & Ankle Surgery | DX: S90.32XA Contusion of left foot, initial encounter (principal); X58.XXXA Exposure to other specified factors, initial encounter; E11.610 Type 2 diabetes mellitus with diabetic neuropathic arthropathy; Z79.4 Long term (current) use of insulin; Y93.89 Activity, other specified; Y92.89 Other specified places as the place of occurrence of the external cause; Z79.82 Long term (current) use of aspirin; L84 Corns and callosities; M20.12 Hallux valgus (acquired), left foot; M20.11 Hallux valgus (acquired), right foot | CPT/HCPCS: 10140; 87070; 87077; 87186; A6402; Z7610 ==

== ENCOUNTER 2018-08-01 11:12 | Outpatient (CLI) | payer BC, MEDICARE | END 2018-08-01 23:59 | disposition home or self-care (01) | LOC: WOU 11:12 | PROVIDERS: ATTEND Podiatrist Foot & Ankle Surgery | DX: E11.621 Type 2 diabetes mellitus with foot ulcer (principal); L97.422 Non-pressure chronic ulcer of left heel and midfoot with fat layer exposed; L97.412 Non-pressure chronic ulcer of right heel and midfoot with fat layer exposed; E11.610 Type 2 diabetes mellitus with diabetic neuropathic arthropathy; E11.42 Type 2 diabetes mellitus with diabetic polyneuropathy; L03.116 Cellulitis of left lower limb; Z79.4 Long term (current) use of insulin; Z79.82 Long term (current) use of aspirin | CPT/HCPCS: 11042; A6402; Z7610 ==

== ENCOUNTER 2018-09-26 11:15 | Outpatient (CLI) | payer BC, MEDICARE | END 2018-09-26 23:59 | disposition home or self-care (01) | LOC: WOU 11:15 | PROVIDERS: ATTEND Podiatrist Foot & Ankle Surgery | DX: E11.621 Type 2 diabetes mellitus with foot ulcer (principal); L97.422 Non-pressure chronic ulcer of left heel and midfoot with fat layer exposed; L97.412 Non-pressure chronic ulcer of right heel and midfoot with fat layer exposed; E11.42 Type 2 diabetes mellitus with diabetic polyneuropathy; Z79.4 Long term (current) use of insulin; M06.9 Rheumatoid arthritis, unspecified; M21.079 Valgus deformity, not elsewhere classified, unspecified ankle; M19.072 Primary osteoarthritis, left ankle and foot; M19.071 Primary osteoarthritis, right ankle and foot | CPT/HCPCS: 11042; A6402; Z7610 ==

== ENCOUNTER 2018-10-03 11:15 | Outpatient (CLI) | payer BC, MEDICARE | END 2018-10-03 23:59 | disposition home or self-care (01) | LOC: WOU 11:15 | PROVIDERS: ATTEND Podiatrist Foot & Ankle Surgery | DX: E11.621 Type 2 diabetes mellitus with foot ulcer (principal); L97.422 Non-pressure chronic ulcer of left heel and midfoot with fat layer exposed; L97.412 Non-pressure chronic ulcer of right heel and midfoot with fat layer exposed; E11.610 Type 2 diabetes mellitus with diabetic neuropathic arthropathy; Z79.4 Long term (current) use of insulin; M06.9 Rheumatoid arthritis, unspecified; M21.079 Valgus deformity, not elsewhere classified, unspecified ankle; L90.9 Atrophic disorder of skin, unspecified; Z79.82 Long term (current) use of aspirin | CPT/HCPCS: 11042; A6402; Z7610 ==

== ENCOUNTER 2018-10-13 11:15 | Outpatient (CLI) | payer BC, MEDICARE ==
[~2018-10-13 11:15] MED LIST changes: -AMLO5TAB7 PO; +AMLO5TAB9 PO
== END 2018-10-13 23:59 | disposition home or self-care (01) ==
LOC: WOU 11:15
PROVIDERS: ATTEND Podiatrist Foot & Ankle Surgery
DX: E11.621 Type 2 diabetes mellitus with foot ulcer (principal); L97.422 Non-pressure chronic ulcer of left heel and midfoot with fat layer exposed; L97.412 Non-pressure chronic ulcer of right heel and midfoot with fat layer exposed; E11.610 Type 2 diabetes mellitus with diabetic neuropathic arthropathy; L40.59 Other psoriatic arthropathy; E11.42 Type 2 diabetes mellitus with diabetic polyneuropathy; L90.9 Atrophic disorder of skin, unspecified; M21.079 Valgus deformity, not elsewhere classified, unspecified ankle; M06.9 Rheumatoid arthritis, unspecified; Z79.4 Long term (current) use of insulin; Z79.82 Long term (current) use of aspirin; Z79.899 Other long term (current) drug therapy
CPT/HCPCS: 11042; A6402

== ENCOUNTER 2018-10-31 11:15 | Outpatient (CLI) | payer BC, MEDICARE | END 2018-10-31 23:59 | disposition home or self-care (01) | LOC: WOU 11:15 | PROVIDERS: ATTEND Podiatrist Foot & Ankle Surgery | DX: E11.621 Type 2 diabetes mellitus with foot ulcer (principal); L97.422 Non-pressure chronic ulcer of left heel and midfoot with fat layer exposed; L97.412 Non-pressure chronic ulcer of right heel and midfoot with fat layer exposed; E11.610 Type 2 diabetes mellitus with diabetic neuropathic arthropathy; Z79.82 Long term (current) use of aspirin; Z79.4 Long term (current) use of insulin | CPT/HCPCS: 11042; A6402 ==

== ENCOUNTER 2018-11-07 11:15 | Outpatient (CLI) | payer BC, MEDICARE | END 2018-11-07 23:59 | disposition home or self-care (01) | LOC: WOU 11:15 | PROVIDERS: ATTEND Podiatrist Foot & Ankle Surgery | DX: E11.621 Type 2 diabetes mellitus with foot ulcer (principal); L97.422 Non-pressure chronic ulcer of left heel and midfoot with fat layer exposed; L97.412 Non-pressure chronic ulcer of right heel and midfoot with fat layer exposed; E11.610 Type 2 diabetes mellitus with diabetic neuropathic arthropathy; E11.42 Type 2 diabetes mellitus with diabetic polyneuropathy; Z79.4 Long term (current) use of insulin; M21.072 Valgus deformity, not elsewhere classified, left ankle; M21.071 Valgus deformity, not elsewhere classified, right ankle | CPT/HCPCS: 11042 ==

== ENCOUNTER 2018-11-14 11:15 | Outpatient (CLI) | payer BC, MEDICARE | END 2018-11-14 23:59 | disposition home or self-care (01) | LOC: WOU 11:15 | PROVIDERS: ATTEND Podiatrist Foot & Ankle Surgery | DX: E11.621 Type 2 diabetes mellitus with foot ulcer (principal); L97.522 Non-pressure chronic ulcer of other part of left foot with fat layer exposed; L97.512 Non-pressure chronic ulcer of other part of right foot with fat layer exposed; E11.610 Type 2 diabetes mellitus with diabetic neuropathic arthropathy; E11.42 Type 2 diabetes mellitus with diabetic polyneuropathy; Z79.4 Long term (current) use of insulin; Z79.82 Long term (current) use of aspirin; M21.00 Valgus deformity, not elsewhere classified, unspecified site; R60.9 Edema, unspecified | CPT/HCPCS: 11042; 71046; A6402; Z7610 ==

== ENCOUNTER 2018-11-21 11:15 | Outpatient (CLI) | payer BC, MEDICARE | END 2018-11-21 23:59 | disposition home or self-care (01) | LOC: WOU 11:15 | PROVIDERS: ATTEND Podiatrist Foot & Ankle Surgery | DX: E11.621 Type 2 diabetes mellitus with foot ulcer (principal); L97.522 Non-pressure chronic ulcer of other part of left foot with fat layer exposed; L97.512 Non-pressure chronic ulcer of other part of right foot with fat layer exposed; M06.9 Rheumatoid arthritis, unspecified; E11.610 Type 2 diabetes mellitus with diabetic neuropathic arthropathy; Z79.4 Long term (current) use of insulin; Z79.82 Long term (current) use of aspirin; M21.00 Valgus deformity, not elsewhere classified, unspecified site; M20.12 Hallux valgus (acquired), left foot; M20.11 Hallux valgus (acquired), right foot; M20.40 Other hammer toe(s) (acquired), unspecified foot | CPT/HCPCS: 11042 ==

== ENCOUNTER 2018-11-28 11:10 | Outpatient (CLI) | payer BC, MEDICARE | END 2018-11-28 23:59 | disposition home or self-care (01) | LOC: WOU 11:10 | PROVIDERS: ATTEND Podiatrist Foot & Ankle Surgery | DX: E11.621 Type 2 diabetes mellitus with foot ulcer (principal); L97.522 Non-pressure chronic ulcer of other part of left foot with fat layer exposed; L97.512 Non-pressure chronic ulcer of other part of right foot with fat layer exposed; E11.610 Type 2 diabetes mellitus with diabetic neuropathic arthropathy; M21.079 Valgus deformity, not elsewhere classified, unspecified ankle; M06.9 Rheumatoid arthritis, unspecified; Z79.82 Long term (current) use of aspirin; Z79.4 Long term (current) use of insulin | CPT/HCPCS: 11042; A6402 ==

== ENCOUNTER 2018-12-05 11:15 | Outpatient (CLI) | payer BC, MEDICARE | END 2018-12-05 23:59 | disposition home or self-care (01) | LOC: WOU 11:15 | PROVIDERS: ATTEND Podiatrist Foot & Ankle Surgery | DX: E11.621 Type 2 diabetes mellitus with foot ulcer (principal); L97.522 Non-pressure chronic ulcer of other part of left foot with fat layer exposed; L97.512 Non-pressure chronic ulcer of other part of right foot with fat layer exposed; E11.610 Type 2 diabetes mellitus with diabetic neuropathic arthropathy; E11.42 Type 2 diabetes mellitus with diabetic polyneuropathy; Z79.4 Long term (current) use of insulin; M06.9 Rheumatoid arthritis, unspecified; Z79.82 Long term (current) use of aspirin | CPT/HCPCS: 11042; A6402 ×2 ==

== ENCOUNTER 2018-12-15 13:15 | Outpatient (CLI) | payer BC, MEDICARE | END 2018-12-15 23:59 | disposition home or self-care (01) | LOC: WOU 13:15 | PROVIDERS: ATTEND Podiatrist Foot & Ankle Surgery | DX: Z48.817 Encounter for surgical aftercare following surgery on the skin and subcutaneous tissue (principal); Z47.89 Encounter for other orthopedic aftercare; E11.621 Type 2 diabetes mellitus with foot ulcer; L97.422 Non-pressure chronic ulcer of left heel and midfoot with fat layer exposed; E11.42 Type 2 diabetes mellitus with diabetic polyneuropathy; E11.610 Type 2 diabetes mellitus with diabetic neuropathic arthropathy; Z98.1 Arthrodesis status; Z79.4 Long term (current) use of insulin; M06.9 Rheumatoid arthritis, unspecified | CPT/HCPCS: 11042; 11043; A6402 ==

== ENCOUNTER 2018-12-22 12:00 | Outpatient (CLI) | payer BC, MEDICARE | END 2018-12-22 23:59 | disposition home or self-care (01) | LOC: WOU 12:00 | PROVIDERS: ATTEND Podiatrist Foot & Ankle Surgery | DX: E11.621 Type 2 diabetes mellitus with foot ulcer (principal); L97.422 Non-pressure chronic ulcer of left heel and midfoot with fat layer exposed; Z48.00 Encounter for change or removal of nonsurgical wound dressing; S91.112A Laceration without foreign body of left great toe without damage to nail, initial encounter; X58.XXXA Exposure to other specified factors, initial encounter; Y92.89 Other specified places as the place of occurrence of the external cause; E11.610 Type 2 diabetes mellitus with diabetic neuropathic arthropathy; M06.9 Rheumatoid arthritis, unspecified; R60.0 Localized edema; Z79.4 Long term (current) use of insulin; Z79.82 Long term (current) use of aspirin | CPT/HCPCS: 11042; 29445; A6402 ×2 ==

== ENCOUNTER 2018-12-29 11:50 | Outpatient (CLI) | payer BC, MEDICARE | END 2018-12-29 23:59 | disposition home or self-care (01) | LOC: WOU 11:50 | PROVIDERS: ATTEND Podiatrist Foot & Ankle Surgery | DX: E11.621 Type 2 diabetes mellitus with foot ulcer (principal); L97.422 Non-pressure chronic ulcer of left heel and midfoot with fat layer exposed; L97.528 Non-pressure chronic ulcer of other part of left foot with other specified severity; Z47.89 Encounter for other orthopedic aftercare; M24.674 Ankylosis, right foot; E11.610 Type 2 diabetes mellitus with diabetic neuropathic arthropathy; E11.42 Type 2 diabetes mellitus with diabetic polyneuropathy; M21.072 Valgus deformity, not elsewhere classified, left ankle; M06.9 Rheumatoid arthritis, unspecified; Z79.4 Long term (current) use of insulin; Z79.82 Long term (current) use of aspirin; Z79.899 Other long term (current) drug therapy | CPT/HCPCS: 11042; 29445; A6402 ==

== ENCOUNTER 2019-01-05 11:15 | Outpatient (CLI) | payer BC, MEDICARE | END 2019-01-05 23:59 | disposition home or self-care (01) | LOC: WOU 11:15 | PROVIDERS: ATTEND Podiatrist Foot & Ankle Surgery | DX: Z47.89 Encounter for other orthopedic aftercare (principal); E11.621 Type 2 diabetes mellitus with foot ulcer; E11.610 Type 2 diabetes mellitus with diabetic neuropathic arthropathy; E11.42 Type 2 diabetes mellitus with diabetic polyneuropathy; Z79.4 Long term (current) use of insulin; L97.522 Non-pressure chronic ulcer of other part of left foot with fat layer exposed; T81.89XD Other complications of procedures, not elsewhere classified, subsequent encounter; S91.112A Laceration without foreign body of left great toe without damage to nail, initial encounter; X58.XXXA Exposure to other specified factors, initial encounter; Y92.89 Other specified places as the place of occurrence of the external cause; L40.59 Other psoriatic arthropathy; Z98.1 Arthrodesis status; Z79.82 Long term (current) use of aspirin | CPT/HCPCS: 11042; 29445; A6402 ==

== ENCOUNTER 2019-01-12 12:15 | Outpatient (CLI) | payer BC, MEDICARE | END 2019-01-12 23:59 | disposition home or self-care (01) | LOC: WOU 12:15 | PROVIDERS: ATTEND Podiatrist Foot & Ankle Surgery | DX: T81.31XA Disruption of external operation (surgical) wound, not elsewhere classified, initial encounter (principal); E11.621 Type 2 diabetes mellitus with foot ulcer; L97.522 Non-pressure chronic ulcer of other part of left foot with fat layer exposed; R60.0 Localized edema; M06.9 Rheumatoid arthritis, unspecified; L03.116 Cellulitis of left lower limb; E11.610 Type 2 diabetes mellitus with diabetic neuropathic arthropathy; R19.7 Diarrhea, unspecified; Z79.4 Long term (current) use of insulin; Z79.899 Other long term (current) drug therapy; M21.072 Valgus deformity, not elsewhere classified, left ankle; L40.59 Other psoriatic arthropathy | CPT/HCPCS: 11042; A6253; A6402 ×2 ==

== ENCOUNTER 2019-01-19 12:15 | Outpatient (CLI) | payer BC, MEDICARE | END 2019-01-19 23:59 | disposition home or self-care (01) | LOC: WOU 12:15 | PROVIDERS: ATTEND Podiatrist Foot & Ankle Surgery | DX: E11.610 Type 2 diabetes mellitus with diabetic neuropathic arthropathy (principal); R60.0 Localized edema; M06.9 Rheumatoid arthritis, unspecified; M21.072 Valgus deformity, not elsewhere classified, left ankle; L97.422 Non-pressure chronic ulcer of left heel and midfoot with fat layer exposed; L97.512 Non-pressure chronic ulcer of other part of right foot with fat layer exposed | CPT/HCPCS: 11042; 11043; A6402 ==

== ENCOUNTER 2019-01-26 10:21 | Outpatient (CLI) | payer BC, MEDICARE | END 2019-01-26 23:59 | disposition home or self-care (01) | LOC: CT 10:21 | PROVIDERS: ATTEND Podiatrist Foot & Ankle Surgery | DX: M81.0 Age-related osteoporosis without current pathological fracture (principal); Z98.890 Other specified postprocedural states | CPT/HCPCS: 73700-TC ==

== ENCOUNTER 2019-01-26 10:28 | Outpatient (CLI) | payer BC, MEDICARE | END 2019-01-26 23:59 | disposition home or self-care (01) | LOC: RAD 10:28 | PROVIDERS: ATTEND Podiatrist Foot & Ankle Surgery | DX: M19.071 Primary osteoarthritis, right ankle and foot (principal); M25.774 Osteophyte, right foot; M24.674 Ankylosis, right foot; Z98.890 Other specified postprocedural states | CPT/HCPCS: 73630-TC ==

== ENCOUNTER 2019-01-26 11:00 | Outpatient (CLI) | payer BC, MEDICARE | END 2019-01-26 23:59 | disposition home or self-care (01) | LOC: WOU 11:00 | PROVIDERS: ATTEND Podiatrist Foot & Ankle Surgery | DX: T81.31XA Disruption of external operation (surgical) wound, not elsewhere classified, initial encounter (principal); E11.621 Type 2 diabetes mellitus with foot ulcer; L97.422 Non-pressure chronic ulcer of left heel and midfoot with fat layer exposed; M21.072 Valgus deformity, not elsewhere classified, left ankle; M06.9 Rheumatoid arthritis, unspecified; Z79.4 Long term (current) use of insulin; Z79.82 Long term (current) use of aspirin; Z79.899 Other long term (current) drug therapy; E11.610 Type 2 diabetes mellitus with diabetic neuropathic arthropathy; M21.071 Valgus deformity, not elsewhere classified, right ankle | CPT/HCPCS: 11042; A6402 ==

== ENCOUNTER 2019-02-02 12:15 | Outpatient (CLI) | payer BC, MEDICARE | END 2019-02-02 23:59 | disposition home or self-care (01) | LOC: WOU 12:15 | PROVIDERS: ATTEND Podiatrist Foot & Ankle Surgery | DX: T81.31XA Disruption of external operation (surgical) wound, not elsewhere classified, initial encounter (principal); E11.42 Type 2 diabetes mellitus with diabetic polyneuropathy; L40.59 Other psoriatic arthropathy; Z86.31 Personal history of diabetic foot ulcer; E89.0 Postprocedural hypothyroidism; M06.9 Rheumatoid arthritis, unspecified; E11.610 Type 2 diabetes mellitus with diabetic neuropathic arthropathy; M21.072 Valgus deformity, not elsewhere classified, left ankle; M21.071 Valgus deformity, not elsewhere classified, right ankle; Z79.82 Long term (current) use of aspirin; Z79.4 Long term (current) use of insulin | CPT/HCPCS: 11042; A6402 ==

== ENCOUNTER 2019-02-09 11:15 | Outpatient (CLI) | payer BC, MEDICARE | END 2019-02-09 23:59 | disposition home or self-care (01) | LOC: WOU 11:15 | PROVIDERS: ATTEND Podiatrist Foot & Ankle Surgery | PROC: 0HQMXZZ Repair Right Foot Skin, External Approach (ICD-10-PCS; principal; 2019-02-09) | PROC: 0JBQ0ZZ Excision of Right Foot Subcutaneous Tissue and Fascia, Open Approach (ICD-10-PCS; principal; 2019-02-09) | DX: T81.31XA Disruption of external operation (surgical) wound, not elsewhere classified, initial encounter (principal); E11.610 Type 2 diabetes mellitus with diabetic neuropathic arthropathy; E11.42 Type 2 diabetes mellitus with diabetic polyneuropathy; L40.59 Other psoriatic arthropathy; Z79.4 Long term (current) use of insulin; Z79.82 Long term (current) use of aspirin | CPT/HCPCS: 12020; J3490 ==

== ENCOUNTER 2019-02-20 11:10 | Outpatient (CLI) | payer BC, MEDICARE | END 2019-02-20 23:59 | disposition home or self-care (01) | LOC: WOU 11:10 | PROVIDERS: ATTEND Podiatrist Foot & Ankle Surgery | DX: T81.31XA Disruption of external operation (surgical) wound, not elsewhere classified, initial encounter (principal); M21.072 Valgus deformity, not elsewhere classified, left ankle; E11.610 Type 2 diabetes mellitus with diabetic neuropathic arthropathy; Z98.1 Arthrodesis status; Z79.82 Long term (current) use of aspirin; Z79.4 Long term (current) use of insulin | CPT/HCPCS: 12001; A6402 ==

== ENCOUNTER 2019-03-02 11:30 | Outpatient (CLI) | payer BC, MEDICARE | END 2019-03-02 23:59 | disposition home or self-care (01) | LOC: WOU 11:30 | PROVIDERS: ATTEND Podiatrist Foot & Ankle Surgery | DX: E11.621 Type 2 diabetes mellitus with foot ulcer (principal); L97.422 Non-pressure chronic ulcer of left heel and midfoot with fat layer exposed; M06.9 Rheumatoid arthritis, unspecified; E11.610 Type 2 diabetes mellitus with diabetic neuropathic arthropathy; T81.30XA Disruption of wound, unspecified, initial encounter | CPT/HCPCS: 11042; A6402 ==

== ENCOUNTER 2019-03-09 11:30 | Outpatient (CLI) | payer BC, MEDICARE | END 2019-03-09 23:59 | disposition home or self-care (01) | LOC: WOU 11:30 | PROVIDERS: ATTEND Podiatrist Foot & Ankle Surgery | DX: E11.621 Type 2 diabetes mellitus with foot ulcer (principal); L97.522 Non-pressure chronic ulcer of other part of left foot with fat layer exposed; T81.31XA Disruption of external operation (surgical) wound, not elsewhere classified, initial encounter; E11.610 Type 2 diabetes mellitus with diabetic neuropathic arthropathy; E11.42 Type 2 diabetes mellitus with diabetic polyneuropathy; M06.9 Rheumatoid arthritis, unspecified; Z79.82 Long term (current) use of aspirin; Z79.4 Long term (current) use of insulin | CPT/HCPCS: 11042; A6402 ==

== ENCOUNTER 2019-03-16 11:15 | Outpatient (CLI) | payer BC, MEDICARE | END 2019-03-16 23:59 | disposition home or self-care (01) | LOC: WOU 11:15 | PROVIDERS: ATTEND Podiatrist Foot & Ankle Surgery | DX: E11.621 Type 2 diabetes mellitus with foot ulcer (principal); L97.422 Non-pressure chronic ulcer of left heel and midfoot with fat layer exposed; L97.512 Non-pressure chronic ulcer of other part of right foot with fat layer exposed; M06.9 Rheumatoid arthritis, unspecified; T81.30XA Disruption of wound, unspecified, initial encounter; E11.42 Type 2 diabetes mellitus with diabetic polyneuropathy; M84.47 Pathological fracture, ankle, foot and toes; E11.610 Type 2 diabetes mellitus with diabetic neuropathic arthropathy; Z98.1 Arthrodesis status; Z79.4 Long term (current) use of insulin; Z79.82 Long term (current) use of aspirin | CPT/HCPCS: 11042; A6402 ==

== ENCOUNTER 2019-03-23 11:40 | Outpatient (CLI) | payer BC, MEDICARE | END 2019-03-23 23:59 | disposition home or self-care (01) | LOC: WOU 11:40 | PROVIDERS: ATTEND Podiatrist Foot & Ankle Surgery | DX: E11.621 Type 2 diabetes mellitus with foot ulcer (principal); L97.822 Non-pressure chronic ulcer of other part of left lower leg with fat layer exposed; T81.31XA Disruption of external operation (surgical) wound, not elsewhere classified, initial encounter; E11.610 Type 2 diabetes mellitus with diabetic neuropathic arthropathy; E11.42 Type 2 diabetes mellitus with diabetic polyneuropathy; M06.9 Rheumatoid arthritis, unspecified; Z79.4 Long term (current) use of insulin; Z79.82 Long term (current) use of aspirin; Z79.899 Other long term (current) drug therapy | CPT/HCPCS: 11042; A6402 ==

== ENCOUNTER 2019-03-30 11:25 | Outpatient (CLI) | payer BC, MEDICARE | END 2019-03-30 23:59 | disposition home or self-care (01) | LOC: WOU 11:25 | PROVIDERS: ATTEND Podiatrist Foot & Ankle Surgery | DX: E11.621 Type 2 diabetes mellitus with foot ulcer (principal); L97.422 Non-pressure chronic ulcer of left heel and midfoot with fat layer exposed; L97.512 Non-pressure chronic ulcer of other part of right foot with fat layer exposed; T81.31XA Disruption of external operation (surgical) wound, not elsewhere classified, initial encounter; E11.610 Type 2 diabetes mellitus with diabetic neuropathic arthropathy; M06.9 Rheumatoid arthritis, unspecified; E11.42 Type 2 diabetes mellitus with diabetic polyneuropathy | CPT/HCPCS: 11042; A6402 ==

== ENCOUNTER 2019-04-13 11:00 | Outpatient (CLI) | payer BC, MEDICARE | END 2019-04-13 23:59 | disposition home or self-care (01) | LOC: WOU 11:00 | PROVIDERS: ATTEND Podiatrist Foot & Ankle Surgery | DX: E11.621 Type 2 diabetes mellitus with foot ulcer (principal); L97.423 Non-pressure chronic ulcer of left heel and midfoot with necrosis of muscle; E11.610 Type 2 diabetes mellitus with diabetic neuropathic arthropathy; E11.42 Type 2 diabetes mellitus with diabetic polyneuropathy; L40.59 Other psoriatic arthropathy; T81.31XA Disruption of external operation (surgical) wound, not elsewhere classified, initial encounter; M06.9 Rheumatoid arthritis, unspecified; E89.0 Postprocedural hypothyroidism; Z79.82 Long term (current) use of aspirin; Z79.890 Hormone replacement therapy; Z79.899 Other long term (current) drug therapy | CPT/HCPCS: 11042; A6402 ==

== ENCOUNTER → 2019-04-27 | Outpatient (CLI) | payer BC, MEDICARE | END | disposition home or self-care (01) | LOC: WOU 11:00 | PROVIDERS: ATTEND Podiatrist Foot & Ankle Surgery | DX: E11.621 Type 2 diabetes mellitus with foot ulcer (principal); L97.522 Non-pressure chronic ulcer of other part of left foot with fat layer exposed; L97.512 Non-pressure chronic ulcer of other part of right foot with fat layer exposed; E11.610 Type 2 diabetes mellitus with diabetic neuropathic arthropathy; M06.9 Rheumatoid arthritis, unspecified; Z98.1 Arthrodesis status; T81.30XA Disruption of wound, unspecified, initial encounter | CPT/HCPCS: 11042; 11043 ==

== ENCOUNTER 2019-05-04 11:00 | Outpatient (CLI) | payer BC, MEDICARE | END 2019-05-04 23:59 | disposition home or self-care (01) | LOC: WOU 11:00 | PROVIDERS: ATTEND Podiatrist Foot & Ankle Surgery | DX: E11.621 Type 2 diabetes mellitus with foot ulcer (principal); L97.522 Non-pressure chronic ulcer of other part of left foot with fat layer exposed; T81.30XA Disruption of wound, unspecified, initial encounter; E11.42 Type 2 diabetes mellitus with diabetic polyneuropathy; E11.610 Type 2 diabetes mellitus with diabetic neuropathic arthropathy; S90.425A Blister (nonthermal), left lesser toe(s), initial encounter; X58.XXXA Exposure to other specified factors, initial encounter; Y92.89 Other specified places as the place of occurrence of the external cause; Z83.3 Family history of diabetes mellitus; M06.9 Rheumatoid arthritis, unspecified | CPT/HCPCS: 11042 ×2; 11043; A6402 ==

== ENCOUNTER 2019-05-11 11:18 | Outpatient (CLI) | payer BC, MEDICARE | END 2019-05-11 23:59 | disposition home or self-care (01) | LOC: WOU 11:18 | PROVIDERS: ATTEND Podiatrist Foot & Ankle Surgery | DX: E11.621 Type 2 diabetes mellitus with foot ulcer (principal); E11.610 Type 2 diabetes mellitus with diabetic neuropathic arthropathy; L97.422 Non-pressure chronic ulcer of left heel and midfoot with fat layer exposed; L97.522 Non-pressure chronic ulcer of other part of left foot with fat layer exposed; L97.512 Non-pressure chronic ulcer of other part of right foot with fat layer exposed; T81.30XD Disruption of wound, unspecified, subsequent encounter; M06.9 Rheumatoid arthritis, unspecified; Z79.82 Long term (current) use of aspirin | CPT/HCPCS: 11042 ==

== ENCOUNTER 2019-05-18 11:10 | Outpatient (CLI) | payer BC, MEDICARE | END 2019-05-18 23:59 | disposition home or self-care (01) | LOC: WOU 11:10 | PROVIDERS: ATTEND Podiatrist Foot & Ankle Surgery | DX: E11.621 Type 2 diabetes mellitus with foot ulcer (principal); L97.422 Non-pressure chronic ulcer of left heel and midfoot with fat layer exposed; L97.522 Non-pressure chronic ulcer of other part of left foot with fat layer exposed; L97.512 Non-pressure chronic ulcer of other part of right foot with fat layer exposed; M06.9 Rheumatoid arthritis, unspecified; T81.30XA Disruption of wound, unspecified, initial encounter; E11.610 Type 2 diabetes mellitus with diabetic neuropathic arthropathy; M20.42 Other hammer toe(s) (acquired), left foot; R60.0 Localized edema; Z79.4 Long term (current) use of insulin; Z79.82 Long term (current) use of aspirin; Z79.899 Other long term (current) drug therapy | CPT/HCPCS: 11042 ==

== ENCOUNTER 2019-05-25 13:00 | Outpatient (CLI) | payer BC, MEDICARE | END 2019-05-25 23:59 | disposition home or self-care (01) | LOC: WOU 13:00 | PROVIDERS: ATTEND Podiatrist Foot & Ankle Surgery | DX: E11.621 Type 2 diabetes mellitus with foot ulcer (principal); L97.522 Non-pressure chronic ulcer of other part of left foot with fat layer exposed; T81.31XA Disruption of external operation (surgical) wound, not elsewhere classified, initial encounter; E11.42 Type 2 diabetes mellitus with diabetic polyneuropathy; L40.59 Other psoriatic arthropathy; E11.610 Type 2 diabetes mellitus with diabetic neuropathic arthropathy; M06.9 Rheumatoid arthritis, unspecified; Z79.82 Long term (current) use of aspirin; Z79.899 Other long term (current) drug therapy; Z79.4 Long term (current) use of insulin | CPT/HCPCS: 11042 ==

== ENCOUNTER 2019-06-08 10:15 | Outpatient (CLI) | payer BC, MEDICARE | END 2019-06-08 23:59 | disposition home or self-care (01) | LOC: WOU 10:15 | PROVIDERS: ATTEND Podiatrist Foot & Ankle Surgery | DX: Z48.89 Encounter for other specified surgical aftercare (principal); E11.610 Type 2 diabetes mellitus with diabetic neuropathic arthropathy; E11.42 Type 2 diabetes mellitus with diabetic polyneuropathy; E11.621 Type 2 diabetes mellitus with foot ulcer; Z79.4 Long term (current) use of insulin; M06.9 Rheumatoid arthritis, unspecified | CPT/HCPCS: G0463 ==

== ENCOUNTER 2019-06-15 11:10 | Outpatient (CLI) | payer BC, MEDICARE | END 2019-06-15 23:59 | disposition home or self-care (01) | LOC: WOU 11:10 | PROVIDERS: ATTEND Podiatrist Foot & Ankle Surgery | DX: Z47.89 Encounter for other orthopedic aftercare (principal); E11.610 Type 2 diabetes mellitus with diabetic neuropathic arthropathy; L40.50 Arthropathic psoriasis, unspecified; Z79.4 Long term (current) use of insulin; S90.122A Contusion of left lesser toe(s) without damage to nail, initial encounter; X58.XXXA Exposure to other specified factors, initial encounter; Y92.89 Other specified places as the place of occurrence of the external cause | CPT/HCPCS: G0463 ==

== ENCOUNTER 2019-06-22 11:00 | Outpatient (CLI) | payer BC, MEDICARE | END 2019-06-22 23:59 | disposition home or self-care (01) | LOC: WOU 11:00 | PROVIDERS: ATTEND Podiatrist Foot & Ankle Surgery | DX: T81.31XA Disruption of external operation (surgical) wound, not elsewhere classified, initial encounter (principal); E11.610 Type 2 diabetes mellitus with diabetic neuropathic arthropathy; Z79.4 Long term (current) use of insulin; Z79.82 Long term (current) use of aspirin | CPT/HCPCS: 11042 ==

== ENCOUNTER 2019-06-29 11:12 | Outpatient (CLI) | payer BC, MEDICARE | END 2019-06-29 23:59 | disposition home health service (06) | LOC: WOU 11:12 | PROVIDERS: ATTEND Podiatrist Foot & Ankle Surgery | DX: T81.89XA Other complications of procedures, not elsewhere classified, initial encounter (principal); E11.621 Type 2 diabetes mellitus with foot ulcer; L97.522 Non-pressure chronic ulcer of other part of left foot with fat layer exposed; L97.512 Non-pressure chronic ulcer of other part of right foot with fat layer exposed; L97.528 Non-pressure chronic ulcer of other part of left foot with other specified severity; E11.42 Type 2 diabetes mellitus with diabetic polyneuropathy; E11.610 Type 2 diabetes mellitus with diabetic neuropathic arthropathy; M21.072 Valgus deformity, not elsewhere classified, left ankle; L40.50 Arthropathic psoriasis, unspecified; Z79.899 Other long term (current) drug therapy; Z79.82 Long term (current) use of aspirin; Z79.4 Long term (current) use of insulin | CPT/HCPCS: 11042 ==

== ENCOUNTER 2019-07-06 11:10 | Outpatient (CLI) | payer BC, MEDICARE | END 2019-07-06 23:59 | disposition home health service (06) | LOC: WOU 11:10 | PROVIDERS: ATTEND Podiatrist Foot & Ankle Surgery | DX: T81.31XA Disruption of external operation (surgical) wound, not elsewhere classified, initial encounter (principal); E11.621 Type 2 diabetes mellitus with foot ulcer; L97.522 Non-pressure chronic ulcer of other part of left foot with fat layer exposed; L97.812 Non-pressure chronic ulcer of other part of right lower leg with fat layer exposed; E11.42 Type 2 diabetes mellitus with diabetic polyneuropathy; E11.610 Type 2 diabetes mellitus with diabetic neuropathic arthropathy; L40.59 Other psoriatic arthropathy; M06.9 Rheumatoid arthritis, unspecified; Z79.4 Long term (current) use of insulin; Z79.899 Other long term (current) drug therapy | CPT/HCPCS: 11042; 11043 ==

== ENCOUNTER 2019-07-20 11:00 | Outpatient (CLI) | payer BC, MEDICARE | END 2019-07-20 23:59 | disposition home health service (06) | LOC: WOU 11:00 | PROVIDERS: ATTEND Podiatrist Foot & Ankle Surgery | DX: E11.621 Type 2 diabetes mellitus with foot ulcer (principal); E11.610 Type 2 diabetes mellitus with diabetic neuropathic arthropathy; L97.422 Non-pressure chronic ulcer of left heel and midfoot with fat layer exposed; L97.512 Non-pressure chronic ulcer of other part of right foot with fat layer exposed; E11.42 Type 2 diabetes mellitus with diabetic polyneuropathy; T81.31XA Disruption of external operation (surgical) wound, not elsewhere classified, initial encounter; L40.50 Arthropathic psoriasis, unspecified; M06.9 Rheumatoid arthritis, unspecified; Z79.4 Long term (current) use of insulin | CPT/HCPCS: 11042; 11043 ==